=== PATIENT | female | born 1950 | race Caucasian/White ===

== ENCOUNTER 2019-03-06 14:38 | Outpatient (REF) | payer MEDICARE, SELFPAY ==
[2019-03-06 20:00] LABS: Absolute Basophil Count 0.02 k/cumm (0.0-0.2); Absolute Lymphocyte Count 1.86 k/cumm (1.2-3.4); Absolute Monocyte Count 0.35 k/cumm (0.11-0.7); Absolute Neutrophil Count 2.21 k/cumm (1.2-6.7); Basophils % 0.4; Eosinophils % 2.2; HCT 38.3 % (36.0-46.0); HGB 12.9 g/dL (12.0-15.5); Mean Corp. HGB Concentration 33.7 g/dL (32.0-36.0); Mean Platelet Volume 10.4 fL (8.0-11.0); Monocytes % 7.7; Neutrophils % 48.7; Platelet Count 309 x1000/uL (130-400); RBC 3.91 m/cumm (4.00-5.20); RBC Distribution Width 12.1 % (11.7-14.6); White Blood Cell Count 4.54 k/cumm (4.4-10.8)
[2019-03-06 20:32] LABS: ALT 21 U/L (12-78); AST 21 U/L (15-37); Albumin 3.7 g/dL (3.4-5.0); Alkaline Phosphatase 85 U/L (46-116); Anion Gap 9.3 mmol/L (3-11); BUN 11 mg/dL (7-18); Bilirubin, Total 0.3 mg/dL (0.2-1.0); CO2 26.7 mmol/L (21.0-32.0); CREATININE 0.93 mg/dL (0.55-1.02); Calcium 9.2 mg/dL (8.5-10.1); Chloride 105 mmol/L (98-107); Glucose 92 mg/dL (70-100); Potassium 4.2 mmol/L (3.5-5.1); Sodium 141 mmol/L (136-145); TSH (W/Ref FT4) 1.92 uIU/mL (0.358-3.74); Total Protein 6.8 g/dL (6.4-8.2)
== END 2019-03-06 14:58 ==
LOC: NCHCN 14:38
PROVIDERS: PCP Family Medicine; Visit Provider Physician Assistant Medical
DX: R03.0 Elevated blood-pressure reading, without diagnosis of hypertension (principal)
CPT/HCPCS: 80053; 84443; 85025

== ENCOUNTER 2019-04-14 14:12 | Outpatient (CLI) | payer MEDICARE, SELFPAY ==
--- NOTE | 2019-04-14 11:31 | DI.RAD_ITS ---
SYMPTOM/DIAGNOSIS: LOW BACK PAIN, M54.5 LUMBAR SPINE: There are endplate declivities seen in the L 3 and L 4 vertebral bodies resulting in mild compression. The findings appear old. The disc spaces are well maintained in height. There are facet degenerative changes which are prominent from L 3-4 through L 5-S 1. There is no spondylolysis or spondylolisthesis. There are mild degenerative changes of the hip joints and SI joints. IMPRESSION: Facet degenerative changes of the lower lumbar spine. Mild compression of the L 3 and L 4 vertebral bodies.
== END 2019-04-14 14:32 ==
PROVIDERS: PCP Family Medicine; Visit Provider Physician Assistant Medical
DX: M54.5 Low back pain (principal); M47.817 Spondylosis without myelopathy or radiculopathy, lumbosacral region; M48.56XD Collapsed vertebra, not elsewhere classified, lumbar region, subsequent encounter for fracture with routine healing
CPT/HCPCS: 72110

== ENCOUNTER 2019-07-27 01:11 | Outpatient (CLI) | payer MEDICARE, SELFPAY ==
--- NOTE | 2019-07-27 07:00 | DI.US_ITS ---
EXAM: US ABDOMEN CLINICAL HISTORY: MAGNOLIA-COLORED STOOLS, R19.5. TECHNIQUE: Ultrasound performed using standard protocol. COMPARISON: RENAL ULTRASOUND (P) from 01/13/2009 FINDINGS: The aorta and vena cava are unremarkable. The liver is normal. Portal vein is intact. There is no ev idence of a Wynne's sign. The patient is status post cholecystectomy. Common duct caliber is 5.8 mm , which is within normal limits. The pancreas is normal. The spleen is normal. The right kidney measu res 9.6 x 3.5 x 5.5 cm, the left kidney 10.5 x 5.8 x 5.2 cm. Regarding the possibility of a complex cyst of the left kidney measuring 2.3 x 1.5 x 1.7 cm, the cyst appears to contain some echogenic omid ons. Further assessment with CT is suggested.
== END 2019-07-27 01:31 ==
PROVIDERS: PCP Family Medicine; Visit Provider Family Medicine
DX: R19.5 Other fecal abnormalities (principal); Z90.49 Acquired absence of other specified parts of digestive tract; N28.1 Cyst of kidney, acquired
CPT/HCPCS: 76700

== ENCOUNTER → 2019-11-23 09:57 | Outpatient (BNVA) | payer MEDICARE, SELFPAY | PROVIDERS: PCP Family Medicine; Referring Provider Family Medicine; Visit Provider Surgery | DX: K59.00 Constipation, unspecified (principal); K63.5 Polyp of colon | CPT/HCPCS: 99203; 99214 ==

== ENCOUNTER 2019-11-27 09:46 | Day surgery (SDC) | payer MEDICARE, SELFPAY ==
[2019-11-27 09:59] VITALS: BP 120/71; PULSE 82; RESP 16; TEMP 36.2; O2SAT 95
[2019-11-27] MEDS: Lactated Ringers 1,000 ML 80 ML IV (10:31)
--- NOTE | 2019-11-27 11:55 | PDOC.DSDIS_ITS ---
Discharge Plan Disposition Patient Disposition: HOME Condition: Good Discharge Details Reason For Visit: Colonoscopy Attending Provider: Leticia Martníez Primary Care Provider: Tyra Garcia V Home Meds and New Rx's Prescriptions: Continued magnesium citrate Solution 150 ml PO ONCE RF: 0 Premarin 0.625 mg/gram cream 0.625 mg VG DAILY RF: 0 ergocalciferol (vitamin D2) 400 UNIT tablet 400 units PO DAILY RF: 0 fluoxetine [Prozac] 20 MG capsule 30 mg PO DAILY RF: 0 alprazolam 0.5 MG tablet,disintegrating 0.5 mg PO HS RF: 0 levalbuterol tartrate [Xopenex HFA] 15 GM HFA aerosol inhaler 15 gm Inhalation PRN PRNRF: 0 alum-mag hydroxide-simeth [Mag-Al Plus] 30 ML suspension 30 ml PO AC Qty: 1 RF: 2 lansoprazole [Prevacid] 15 MG capsule,delayed release(DR/EC) 30 mg PO DAILY Qty: 30 RF: 3 simethicone [Gas-X Extra Strength] 125 mg Tablet,Chewable 125 mg PO PRN PRNRF: 0 fluticasone propionate [Flonase Allergy Relief] 50 mcg/actuation [place],Suspension 1 spray INTRANASAL DAILY RF: 0 calcium carbonate [Tums] 200 mg calcium (500 mg) Tablet,Chewable 200 mg PO PRN PRNRF: 0 valacyclovir 1,000 MG tablet 1,000 mg PO DAILY RF: 0 ibuprofen 600 MG tablet 600 mg PO QID PRN PRNQty: 30 RF: 0 Discharge Instructions Additional Instructions: Findings: One polyp was removed. My office will contact you with biopsy results. Diverticulosis was present. Follow up: Plan for colonoscopy in 5 years. Please call if you develop: fevers >101.5 Nausea or Vomiting Abdominal pain that is not transient DAY SURGERY UNIT POST COLONOSCOPY INSTRUCTIONS 1. Because there will be medication in your system for the next 24 hours, you ma y feel a little sleepy. Your coordination will be affected. Therefore: a. Do not drive or operate dangerous equipment for 24 hours. b. Do not drink alcohol beverages for 24 hours (not even beer). c. Plan to go home and rest for the day. 2. Generally there are no restrictions on your activity after a day or so has gone by, but you may feel a bit fatigued for a few days. 3 After you arrive home you may have a light meal and return to a normal diet as you can tolerate it without feeling sick to your stomach. 4. After surgery, you may feel pain or discomfort. This should be only transient, but if it persists please contact your doctor. 5. If there are any questions regarding the findings of your procedure, please feel free to contact your doctor. 6. If you are unable to contact your doctor with a problem, contact the hospital at [phone]. 7. Continue all your regular medications unless directed otherwise. I understand the above instructions and have no questions. Signature of Patient or Responsible Adult Escort Date/Time Name of Responsible Adult Escort Signature of Nurse Date/Time Activity:: Activity as Tolerated Diet:: As Tolerated Discharge Orders Discharge Orders: Discharge Order (Routine); Ordered 11/27/19 Ordered By: Leticia Martínez DS: Diagnosis Discharge Diagnosis (1) Diverticulosis: Status: Acute (2) Colon polyps: Status: Acute
--- NOTE | 2019-11-27 12:30 | BOWEL_PTH ---
PATIENT: Cherelle Louise LOC: [facility] U#:[id number] AGE/SX: 69/F ROOM: RE11/27/[address]: Leticia Martínez MD : [id number] BED: DIS: 11/27/2019 SPEC #: [id number] RECD: 11/27/19 16:20 STATUS: VILMA REQ #: [id number] ELI: 11/27/19 12:[address]: Leticia Martínez DEPT: Surgical Specimen RECD BY: Shruthi Guillen ENTERED: 11/27/19 16:21 SP TYPE: Bowel OTHR DR: Tyra Garcia V Tissues: 1 - BIOPSY BOWEL Procedures: GROSS AND MICRO LEVEL 4 Comments: [id number]
[2019-11-27 13:27] VITALS: BP 123/61; PULSE 66; RESP 18; TEMP 36.2; O2SAT 96
--- NOTE | 2019-11-27 15:28 | COLE_ITS ---
DATE OF PROCEDURE: November 22, 2019 PREOPERATIVE DIAGNOSIS: History of colon polyps. POSTOPERATIVE DIAGNOSIS: 1. Ascending colon polyp. 2. Diverticulosis. PROCEDURE: Colonoscopy with cold forceps polypectomy. SURGEON: Leticia Martínez M.D. ANESTHESIA: General. INDICATIONS: This is a 69-year-old woman whose colonoscopy in 2014 showed a tubular adenoma. She presents for a follow-up. She also notes increasing constipation. PROCEDURE: She was placed in the left Chow position. Propofol was titrated to sedation. Digital rectal examination revealed no abnormalities. The scope was advanced to the cecum with a small amount of abdominal pressure required. The patient was noted to have a somewhat tortuous sigmoid colon related to diverticular change. There was no evidence of acute inflammation or stricture. The ileocecal valve and appendiceal orifice were clearly identified. Her prep was good. The scope was slowly withdrawn with a 6 mm polyp identified in the distal ascending colon. This was removed completely with a cold forceps and sent to pathology. No other abnormalities were noted throughout the transverse, descending, sigmoid colon or rectum, including on retroflex view, with the exception of the previously-mentioned diverticular disease. She did also have some scattered diverticulosis pockets on the right side of the colon. She tolerated the procedure well and was stable to recovery. It is anticipated she will need a follow-up colonoscopy again in five years pending biopsy results. She can consider increasing her MiraLax dosing to twice daily and if she does not gain benefit from this, then Linzess could be considered as well.
== END 2019-11-27 13:55 | disposition home or self-care (01) ==
PROVIDERS: PCP Family Medicine; Visit Provider Surgery
PROC: 0DJD8ZZ Inspection of Lower Intestinal Tract, Via Natural or Artificial Opening Endoscopic (ICD-10-PCS; CPT 45378; principal; 2019-11-27 11:15)
DX: Z12.11 Encounter for screening for malignant neoplasm of colon (principal); K63.5 Polyp of colon; K57.30 Diverticulosis of large intestine without perforation or abscess without bleeding; Z86.010 Personal history of colon polyps; K21.9 Gastro-esophageal reflux disease without esophagitis
CPT/HCPCS: 45380; 88305; J2704

== ENCOUNTER 2020-02-23 12:36 | Outpatient (REF) | payer MEDICARE, SELFPAY ==
[2020-02-23 19:21] LABS: HCT 36.9 % (36.0-46.0); HGB 12.4 g/dL (12.0-15.5); Mean Corp. HGB Concentration 33.6 g/dL (32.0-36.0); Mean Corpuscular Hemoglobin 32.7 pg (27.0-33.0); Mean Corpuscular Volume 97.4 fL (80-95); Mean Platelet Volume 10.6 fL (8.0-11.0); Platelet Count 325 x1000/uL (130-400); RBC 3.79 m/cumm (4.00-5.20); RBC Distribution Width 12.5 % (11.7-14.6); White Blood Cell Count 5.14 k/cumm (4.4-10.8)
[2020-02-23 19:29] LABS: Anion Gap 8.7 mmol/L (3-11); BUN 10 mg/dL (7-18); CO2 28.3 mmol/L (21.0-32.0); CREATININE 1.12 mg/dL (0.55-1.02); Calcium 9.4 mg/dL (8.5-10.1); Chloride 104 mmol/L (98-107); Estimated GFR 48.38 (mL/min/1.73m2); Glucose 85 mg/dL (74-106); Magnesium 2.3 mg/dL (1.8-2.4); Potassium 4.3 mmol/L (3.5-5.1); Sodium 141 mmol/L (136-145)
[2020-02-23 20:02] LABS: Bilirubin Negative (Negative); Blood Trace-intact (Negative); Clarity Clear (Clear); Glucose 250 mg/dL (Negative); Ketones Negative (Negative); Leukocyte Esterase Small (Negative); Nitrite Negative (Negative); Specific Gravity 1.025 (1.005-1.025); Urobilinogen 0.2 EU/dL (Up TO 0.2)
[2020-02-23 20:11] LABS: C & S Indicated? C&S Done As Ordered
[2020-02-23 20:14] LABS: Bacteria Few HPF (Negative); Casts Negative LPF (Negative); Crystals Negative HPF (Negative); Epithelial Cells Negative HPF (Negative); Mucus Negative (Negative); Other Cells Negative (Negative); RBC Negative HPF (0-2); WBC >50 HPF (0-5)
== END 2020-02-23 12:56 ==
LOC: NCHCN 12:36
PROVIDERS: PCP Family Medicine; Visit Provider Family Medicine
DX: R10.9 Unspecified abdominal pain (principal); R35.0 Frequency of micturition; M35.00 Sjogren syndrome, unspecified
CPT/HCPCS: 80048; 85027; 81003; 81015; 83735; 87086

== ENCOUNTER 2020-02-26 13:30 | Outpatient (CLI) | payer MEDICARE, SELFPAY ==
--- NOTE | 2020-02-26 | DI.CT_ITS ---
EXAM: CT THORACIC SPINE WO TECHNIQUE: Imaging Protocol: Axial computed tomography images with coronal and sagittal reformatted images were created and reviewed CONTRAST MATERIAL: Noncontrast COMPARISON: CR CHEST 2 VIEWS PA,LAT from 11/27/2015 CR RIGHT SHOULDER COMPLETE from 11/17/2016 CR RIGHT SHOULDER COMPLETE from 11/17/2016 CR XR lumbar spine complete from 04/14/2019 FINDINGS: The field of view includes T1 through mid L4. There is slight compression of the superior endplate of L1 which could be acute or subacute. It appe ars new when compared with plain films from 14 April 2019. There is a moderate compression fracture of the superior endplate of L3 which shows sclerosis and ifeanyi ears old. The degree of compression appears have increased when compared with previous exam. The re maining vertebral bodies are well maintained in height. There are endplate osteophytes. There is no lytic or blastic lesion. There is no evidence of a disc herniation or central canal stenosis. No n eural foraminal stenosis is identified. The paraspinal soft tissues appear intact. The aorta is no rmal in diameter. IMPRESSION: Mild compression of the superior endplate of L1 which could be acute or subacute. Moderate compressi on fracture of L3 which has worsened when compared with previous plain films. RADIATION DOSE DELIVERED: Total DLP Total DLP DATA REPOSITORY: All CT scans at this facility are submitted to the National Radiology Data Registry (NRDR) Dose Index Registry (DIR) with the [employer] (ACR). RADIATION OPTIMIZATION: All CT scans at this facility use at least one of these dose optimization te chniques: automated exposure control; mA and/or kV adjustment per patient size (includes targeted exa ms where dose is matched to clinical indication); or iterative reconstruction.
--- NOTE | 2020-02-26 12:41 | DI.CT_ITS ---
EXAM: CT RENAL COLIC WO CLINICAL HISTORY: FLANK PAIN, EVALUATE KIDNEYS. TECHNIQUE: Imaging Protocol: Axial computed tomography images with coronal and sagittal reformatted images were created and reviewed. CONTRAST MATERIAL: Noncontrast COMPARISON: CR XR lumbar spine complete from 04/14/2019 FINDINGS: ABDOMEN: Lung Bases: Normal where visualized. Liver: Normal density. No measurable mass. Gallbladder and biliary tract: Status post cholecystectomy. No biliary dilatation. Pancreas: Normal density, no abnormal calcifications or inflammatory process. Spleen: Normal. Kidneys: Normal size, contour and axis. No radiodense stones or obstructive uropathy. No masses seen. There is a small left renal cyst. Adrenal glands: No masses seen. Abdominal Aorta: Abdominal portion non-dilated. PELVIS: Bladder: Symmetric distention, no gross wall thickening. No bladder calculi are seen. Bowel: Sigmoid diverticulosis is seen. There is no evidence of diverticulitis. No obstruction or mookie wel wall thickening. Peritoneal cavity: No ascites, collection or mesenteric inflammatory response. The uterus and right ovary are unremarkable. There is suture material in the left adnexal region whi ch may be secondary to previous oophorectomy. Bones: There is slight compression of the superior endplate of L1. There is a moderate compression f racture of L3, increasing when compared with the previous plain films. There is a mild compression f racture of L4, stable. Facet degenerative changes are seen. The bones appear osteoporotic. No lyti c or blastic lesion is seen. IMPRESSION: No evidence of urinary tract calculi or hydronephrosis. There is been interval worsening of the L3 c ompression fracture, now moderate.. RADIATION DOSE DELIVERED: Total DLP DATA REPOSITORY: All CT scans at this facility are submitted to the National Radiology Data Registry (NRDR) Dose Index Registry (DIR) with the [place] [employer] (ACR). RADIATION OPTIMIZATION: All CT scans at this facility use at least one of these dose optimization te chniques: automated exposure control; mA and/or kV adjustment per patient size (includes targeted exa ms where dose is matched to clinical indication); or iterative reconstruction.
== END 2020-02-26 13:50 ==
PROVIDERS: PCP Family Medicine; Visit Provider Family Medicine
DX: R10.31 Right lower quadrant pain (principal); Z90.49 Acquired absence of other specified parts of digestive tract; N28.1 Cyst of kidney, acquired; M80.88XA Other osteoporosis with current pathological fracture, vertebra(e), initial encounter for fracture
CPT/HCPCS: 72128; 74176

== ENCOUNTER 2020-06-14 01:02 | Outpatient (CLI) | payer MEDICARE, SELFPAY ==
--- NOTE | 2020-06-14 11:38 | DI.MAMMO_ITS ---
EXAM: MAMMO SCREENING CLINICAL HISTORY: SCREENING, Z12.39 TECHNIQUE: Mammograms were interpreted according to the usual protocol including computer analysis w [id number] CAD system, tomosynthesis and C-view imaging. COMPARISON: FINDINGS: The breasts of heterogeneously dense with fairly symmetrical distribution of fibroglandular tissue. No dominant mass or clumped microcalcification is identified in either breast. The current examinati on is compared with previous examinations including March 2018 and there is question of increased prom inence of focal asymmetric density projected laterally in the right breast on CC view. Additional ma mmographic views of the right breast are requested to evaluate this area to include CC spot compressi on view.. No other significant change seen. IMPRESSION: Additional mammographic views of the right breast requested as described above. Breast ultrasound ma y be indicated as well depending on the results of the additional mammographic views. BI-RADS Category 0 - Assessment Incomplete: Need additional imaging evaluation Breast Density - Category C - Heterogeneously dense
== END 2020-06-14 01:22 ==
PROVIDERS: PCP Family Medicine; Visit Provider Family Medicine
DX: Z12.31 Encounter for screening mammogram for malignant neoplasm of breast (principal); R92.2 Inconclusive mammogram
CPT/HCPCS: 77063; 77067

== ENCOUNTER 2020-06-14 01:26 | Outpatient (RCR) | payer MEDICARE, SELFPAY | END 2020-06-20 23:59 | disposition home or self-care (01) | LOC: INF 01:26 | PROVIDERS: PCP Family Medicine; Visit Provider Nurse Practitioner Family | DX: R69 Illness, unspecified (principal) ==

== ENCOUNTER 2020-06-16 02:28 | Outpatient (CLI) | payer MEDICARE, SELFPAY ==
--- NOTE | 2020-06-16 10:45 | DI.US_ITS ---
EXAM: MG MAMMO SCREEN CALL BACK UNI CLINICAL HISTORY: F/U MAMMO, ? INCREASED ASYMMETRIC DENSITY LATERALLY RT BREAST ON CC VIEW TECHNIQUE: Mammograms were interpreted according to the usual protocol including computer analysis w [employer] CAD system, tomosynthesis and C-view imaging. COMPARISON: FINDINGS: Additional mammographic views of the right breast and right breast ultrasound are interpreted in conj unction. These examinations were obtained to evaluate questionable area of asymmetric density seen i n the upper outer quadrant right breast on recent mammogram. Additional mammographic views fail to show a discrete mass. Breast ultrasound shows no evidence of a mass or cyst. IMPRESSION: No specific evidence of malignancy at this time. Follow-up unilateral right breast recommended 6 mon ths. BI-RADS Cat 3 - 6 month - Probably Benign Finding: Recommend follow-up mammography in 6 months Breast Density - Category C - Heterogeneously dense
== END 2020-06-16 02:48 ==
PROVIDERS: PCP Family Medicine; Visit Provider Family Medicine
DX: R92.8 Other abnormal and inconclusive findings on diagnostic imaging of breast; R92.2 Inconclusive mammogram
CPT/HCPCS: 76642; 77063; 77067

== ENCOUNTER 2020-06-17 09:58 | Outpatient (REF) | payer MEDICARE, SELFPAY ==
[2020-06-17 19:03] LABS: Bilirubin Negative (Negative); Blood Negative (Negative); Clarity Clear (Clear); Glucose Negative (Negative); Ketones Negative (Negative); Leukocyte Esterase Negative (Negative); Nitrite Negative (Negative); Urobilinogen 0.2 EU/dL (Up TO 0.2); pH 6.5 (5-8)
[2020-06-17 19:21] LABS: Anion Gap 3.8 mmol/L (3-11); BUN 14 mg/dL (7-18); CO2 30.2 mmol/L (21.0-32.0); CREATININE 1.02 mg/dL (0.55-1.02); Calcium 8.8 mg/dL (8.5-10.1); Calculated LDL 176 mg/dL (<100); Chloride 109 mmol/L (98-107); Cholesterol 247 mg/dL (<200); Estimated GFR 53.73 (mL/min/1.73m2); Glucose 104 mg/dL (74-106); HDL Cholesterol 37 mg/dL (40-60); Potassium 4.3 mmol/L (3.5-5.1); Sodium 143 mmol/L (136-145); Triglyceride 172 mg/dL (<150)
== END 2020-06-17 10:18 ==
LOC: NCHCN 09:58
PROVIDERS: PCP Family Medicine; Visit Provider Family Medicine
DX: I10 Essential (primary) hypertension (principal); E78.5 Hyperlipidemia, unspecified
CPT/HCPCS: 80048; 80061; 81003

== ENCOUNTER 2020-06-23 00:44 | Outpatient (CLI) | payer MEDICARE, SELFPAY ==
--- NOTE | 2020-06-23 09:15 | DI.NM_ITS ---
APPROVED REPORT Exam: Exercise Treadmill Patient Location: Out-Patient Room/Bed: Stress Nurse: Leticia Alvarenga RN BMI: 0 Baseline Rhythm: Sinus Rhythm Comment: Left [place] Deviation Indications: For the past several months patient reports left sided chest ???heaviness??? with walkin g and activity. Medical History Medical History: GERD, Depression, Anxiety. Cardiac Medications: Metoprolol Succinate, Aspirin. Allergies: Crestor, Atorvastatin, Nizoral, Sulfa, Lovastatin, Plaquenil, Mold, Dust, Red Yeast Rice. Cardiac Risk Factors: FHX of CAD, HTN, Hyperlipidemia, Asthma Previous Cardiac Procedures: None Pretest Chest Pain Characteristics: None Exercise History: Physically active Physical Disabilities: None Lung Sounds: Clear to auscultation Heart Sounds: Regular Stress Test Details Test: Exercise stress testing was performed using a Sal protocol. Nuclear Acquisition: Rest Tc-99m/Stress Tc-99m 1 day Rest Isotope: Tc-99m Sestamibi. Dose: 9.8 Date: 06/23/2020 Injection Time: 0930 Stress Isotope: Tc-99m Sestamibi. Dose: 31.0 Date: 06/23/2020 Injection Time: 1125 HR Resting HR Supine: 64 bpm Max Heart Rate (APMHR): 151 bpm Resting HR Standin bpm Target HR (85% APMHR): 128 bpm Max HR Achieved: 140 bpm % of APMHR: 92 HR response to stress: Normal HR response to stress BP Resting BP Supine: 150/90 mmHg Resting BP Standin/90 mmHg Max BP: 182/72 mmHg BP response to stress: Normal blood pressure response to stress. ECG Resting ECG: Sinus Rhythm Stress ECG: No significant St segment changes noted. Clinical Reason for Termination: Fatigue Stress Symptoms: None reported per patient. Exercise duration: 8 min15 sec Highest Stage Reached: Stage 3: 3.4 mph at 14% grade. Exercise capacity: 10.16 METs Functional Capacity: Above average capacity Stress ECG Conclusion 1. Resting electrocardiogram was normal 2. The patient exercised on the Sal protocol and completed a workload of 10.16 METs, 8 minutes and 15 seconds. 3. Normal heart rate and blood pressure response to exercise. The patient achieved 92% of predicted heart rate for age 4. There were no symptoms to suggest angina 5. Electrocardiographically the test was negative for myocardial ischemia 6. There were no dysrhythmias 7. Heller treadmill score is 8, low risk Stress Test Summary STAGE Time (mins) Speed (mph) Grade (%) HR BP SYMPTOMS METS Supine 64 150/90 Standing 65 146/90 1 3 1.7 10 90 158/76 4.6 2 6 2.5 12 109 172/68 7 1 min recovery 128 180/66 3 min recovery 88 182/72 6 min recovery 80 156/82 MPI Conclusion Normal myocardial perfusion without evidence of ischemia or prior infarction EF 71% Radiologist Interpretation Radiologist agrees with Hospice Executive Director's Interpretation. Radiologist Interpretation by: Kenroy Machdao MD Interpretation Date/Time: 07/04/2020 14:47:03
== END 2020-06-23 01:04 ==
PROVIDERS: PCP Family Medicine; Visit Provider Family Medicine
DX: R07.9 Chest pain, unspecified (principal); Z82.49 Family history of ischemic heart disease and other diseases of the circulatory system; I10 Essential (primary) hypertension; E78.5 Hyperlipidemia, unspecified; J45.909 Unspecified asthma, uncomplicated
CPT/HCPCS: 78452; 93016; 93018; 93017

== ENCOUNTER 2020-12-20 01:33 | Outpatient (CLI) | payer MEDICARE, SELFPAY ==
--- NOTE | 2020-12-20 | DI.MAMMO_ITS ---
EXAM: MG MAMMO DIAGNOSTIC UNI CLINICAL HISTORY: DIAGNOSTIC, F/U ABNL MAMMO, 6 MONTH FOLLOW UP TECHNIQUE: Mammograms were interpreted according to the usual protocol including computer analysis w ith CAD system, tomosynthesis and C-view imaging. COMPARISON: FINDINGS: Today's mammogram of the right breast was obtained to follow questionable area of asymmetric density of the upper outer quadrant of the right breast seen on prior mammogram of May 2020. On today's examination, there has been no significant change in appearance of the breast, no new mass or clumped microcalcification seen. Questionable asymmetric density is less prominent than on the p rior study. IMPRESSION: No specific evidence of malignancy at this time. I would suggest that routine screening examinations resume with a bilateral mammogram in 6 months. BI-RADS Category 3 - 6 month - Probably Benign Finding: Recommend follow-up mammography in 6 months Breast Density - Category C - Heterogeneously dense
== END 2020-12-20 01:53 ==
PROVIDERS: PCP Family Medicine; Visit Provider Family Medicine
DX: R92.8 Other abnormal and inconclusive findings on diagnostic imaging of breast (principal)
CPT/HCPCS: 77061; 77065; G0279

== ENCOUNTER 2021-01-25 01:37 | Outpatient (CLI) | payer MEDICARE, SELFPAY ==
--- NOTE | 2021-01-25 10:20 | DI.US_ITS ---
APPROVED REPORT EXAM: Comprehensive 2D, Doppler, and color-flow Echocardiogram Patient Location: Out-Patient Floor Specialist: Kaleigh Swartz RDCS (AE) Indications: Chest pain, Dyspnea on exertion, Murmur Other Information Study Quality: Good Conclusion Left Ventricle : The left ventricle is normal size. The left ventricular systolic function is normal. The left ventricular ejection fraction is within the normal range. There is normal left ventricular wall thickness. There is normal LV segmental wall motion. The left ventricular diastolic function is normal. LVEF is 65%. Right Ventricle : The right ventricle is normal size. The right ventricular systolic function is norm al. The RVSP is 30.4 mmHg. Atria : The left atrium size is normal. The right atrium size is normal. Valves: There are no hemodynamically significant valvular lesions. Great Vessels : The aortic root is normal in size. The ascending aorta is normal in size. Aortic arch is normal in caliber. IVC is normal in size and collapses >50% with inspiration. Please see remainder of study for further details. Wall motion Left Ventricle The left ventricle is normal size. The left ventricular systolic function is normal. The left ventric ular ejection fraction is within the normal range. There is normal left ventricular wall thickness. T here is normal LV segmental wall motion. The left ventricular diastolic function is normal. There is no ventricular septal defect visualized. LVEF is 65%. Right Ventricle The right ventricle is normal size. The right ventricular systolic function is normal. The RVSP is 30 .4 mmHg. Atria The left atrium size is normal. The right atrium size is normal. The interatrial septum is intact wit h no evidence for an atrial septal defect. Aortic Valve The aortic valve is normal in structure. Aortic valve is trileaflet. There is no aortic valvular sten osis. No aortic regurgitation is present. Mitral Valve The mitral valve is normal in structure. No evidence of mitral valve stenosis. Trace mitral regurgita tion. Tricuspid Valve The tricuspid valve is normal in structure. There is no tricuspid valve stenosis. Trace tricuspid reg urgitation. Pulmonic Valve The pulmonary valve is normal in structure. There is no pulmonic valvular stenosis. Trace pulmonic re gurgitation. Great Vessels The aortic root is normal in size. The ascending aorta is normal in size. Aortic arch is normal in ca liber. IVC is normal in size and collapses >50% with inspiration. Pericardium There is no pericardial effusion. 2D Dimensions IVSD d PLAX 0.86 cm F: 0.6-1.0 LV Vol A2C d MOD 70.8 mL LVPW d PLAX 0.87 cm F: 0.6 - 1.0 LV Vol A4C d MOD 86.6 mL LVID d PLAX 4.53 cm F: 3.8 - 5.2 LA vol/ BSA A4C s A-L 22.1 mL/m2 LVDs 2.90 cm F: 2.2 - 3.5 LA Area A4C s MOD 16.55 cm2 Ao Root d 2.40 cm F: 2.7 - 3.3 LV EF A4C MOD 64.5 % RA Area A4C 10.65 cm2 LV EF A2C MOD 61.6 % RA Vol/ BSA A4C s A-L 11.3 mL/m2 LV EF Biplane MOD 62.0 % Ao Asc Diam d 2.73 cm F: 2.3 - 3.1 SV 48.51 mL LV EF Teichholz 65.2 % SV Index 25.47 mL/m2 LVEF (Almendarez's) 62.04 % F: 54 - 74 LV Volume 59.63 mL F: 46 - 106 LV Volume Index 31.38 mL/m2 F: 29 - 61 LV Vol Biplane MOD 78.2 mL FS 35.60 % M-Mode TAPSE 2.60 cm (M/F) >1.7 LV Diastology MV E' medial 0.127 (>0.07 m/s) E/A Ratio 1.1 LV E/e MED 6.70 (<14) MV E Vmax 0.85 (0.4-1.3 m/s) MV E' lateral 0.117 (>0.1 m/s) MV A Vmax 0.75 (0.4-1.3 m/s) LV E/e LAT 7.25 (<14) MV E/A Ratio 1.10 MV E/E' medial 6.70 MV E/E' lateral 7.26 Aortic Valve LVOT Area 3.06 cm2 AoV Area Vmax 2.44 cm2 LVOT Vmax 1.29 m/s AoV Area/ BSA (Vmax) 1.28 cm2/m2 LVOT Mean Ashwin. 0.79 m/s KRISTI Mean Ashwin. 2.34 cm2 LVOT Peak Grad 6.7 mmHg KRISTI Mean Ashwin. Index 1.23 cm2/m2 LVOT Mean Grad 3.0 mmHg LVOT VTI 0.236 m LVOT Diam s 1.95 cm AoV Vmax 1.62 m/s Velocity Ratio 0.79 AoV Mean Ashwin. 1.03 m/s AoV Peak Grad 10.5 mmHg LVOT SV 72.28 mL AoV Mean Grad 4.9 mmHg AoV VTI 0.317 m AoV Area VTI 2.28 cm2 AoV Area/ BSA (VTI) 1.20 cm/m2 Mitral Valve MV DT 226 (160-240 msec) MR Vmax 4.47 m/s MV PHT 65 msec MR VTI 1.350 m MV Area PHT 3.36 cm2 MR Peak Grad 79.8 mmHg MV VTI 0.369 m MR Mean Grad 58.7 mmHg MV VTI Annulus 0.364 m MV Area VTI 1.94 (4.0-6.0 cm2) Pulmonary Valve PV Vmax 1.04 (0.5-1.5 m/s) RVOT Peak Gr. 2.08 mmHg PV Peak Grad 4.3 mmHg RVOT Mean Gr. 1.15 mmHg PV Mean Grad 2.2 mmHg RVOT VTI 0.185 m PV VTI 0.248 m RVOT Vmax 0.72 m/s Tricuspid Valve TR Peak Grad 27.3 mmHg TR Vmax 2.62 m/s RA Pressure 3.00 mmHg RVSP (TR) 30.4 mmHg
== END 2021-01-25 01:57 ==
PROVIDERS: PCP Family Medicine; Visit Provider Family Medicine
DX: R07.9 Chest pain, unspecified (principal); R06.09 Other forms of dyspnea; R01.1 Cardiac murmur, unspecified
CPT/HCPCS: 93306

== ENCOUNTER 2021-06-19 01:27 | Outpatient (CLI) | payer MEDICARE, SELFPAY ==
--- NOTE | 2021-06-19 | DI.MAMMO_ITS ---
Exam(s) MAMMO SCREENING EXAM: MAMMO SCREENING CLINICAL HISTORY: SCREENING, [facility],Z00.00 TECHNIQUE: Bilateral full field digital CC and MLO mammographic images were obtained with 3D tomosyn thesis and utilizing computer aided detection (CAD). COMPARISON: Available for comparison. FINDINGS: Masses/Architectural Distortion: None seen. Microcalcifications: No suspicious pleomorphic-type are seen. Skin Thickening/Nipple Retraction: None. IMPRESSION: 1. No significant interval change with no specific features of malignancy noted. 2. Unless there is more urgent need, screening mammography is recommended, as per [place] guidelines. BI-RADS Category 1 - Negative Breast Density - Category C - Heterogeneously dense Breast density category C or D implies that the patient has dense breast tissue. Dense breast tissue is very common and is not abnormal but dense breast tissue can make it harder to find cancer on a ma mmogram. Also, dense breast tissue may increase their breast cancer risk. This information about the result of the mammogram report was provided to the patient to raise their awareness. Use this report when you speak with the patient about their risks for breast cancer, which includes their family hist ory. At that time, you may recommend for more screening tests (Ultrasound or MRI) as they might be us eful based on their risk. A negative radiographic report should not delay biopsy if a dominant or clinically suspicious mass is present. Up to ten percent of cancers are not identified on mammography. A negative report may reinforce clinical impression. Adenosis and dense breasts may obscure an underlying neoplasm. False positive reports average 6 to 10%. Patient will receive a letter notifying them of these results.
== END 2021-06-19 01:47 ==
PROVIDERS: PCP Family Medicine; Visit Provider Family Medicine
DX: Z12.31 Encounter for screening mammogram for malignant neoplasm of breast
CPT/HCPCS: 77063; 77067

== ENCOUNTER 2021-07-12 10:44 | Outpatient (REF) | payer MEDICARE, SELFPAY ==
[2021-07-12 14:10] LABS: HCT 36.9 % (36.0-46.0); HGB 12.4 g/dL (11.2-15.7); MCH 32.2 pg (27.0-33.0); MCHC 33.6 % (32.0-36.0); MCV 95.8 fL (80-95); MPV 10.5 fL (8.0-11.0); Platelet Count 301 10^3/uL (130-400); RBC 3.85 10^6/uL (3.93-5.22); RDW 12.1 % (11.7-14.6); RDW-SD 42.4 fL; WBC 4.91 10^3/uL (4.4-10.8)
[2021-07-12 14:32] LABS: ALT 24 U/L (14-59); AST 19 U/L (15-37); Albumin 3.8 g/dL (3.4-5.0); Alkaline Phosphatase 90 U/L (46-116); Anion Gap 9.4 mmol/L (3-11); BUN 14 mg/dL (7-18); Bilirubin, Total 0.4 mg/dL (0.2-1.0); CO2 27.6 mmol/L (21.0-32.0); CREATININE 1.1 mg/dL (0.55-1.02); Calcium 8.7 mg/dL (8.5-10.1); Calculated LDL 196 mg/dL (<100); Chloride 106 mmol/L (98-107); Cholesterol 265 mg/dL (<200); Glucose 97 mg/dL (74-106); HDL Cholesterol 38 mg/dL (40-60); Potassium 4.3 mmol/L (3.5-5.1); Sodium 143 mmol/L (136-145); TSH (W/Ref FT4) 2.89 uIU/mL (0.36-3.74); Total Protein 6.9 g/dL (6.4-8.2); Triglyceride 155 mg/dL (<150)
== END 2021-07-12 10:45 | disposition home or self-care (01) ==
LOC: NCHCN 10:44
PROVIDERS: PCP Family Medicine; Visit Provider Family Medicine
DX: I10 Essential (primary) hypertension (principal); E78.5 Hyperlipidemia, unspecified; R53.83 Other fatigue
CPT/HCPCS: 80053; 80061; 85027; 84443

== ENCOUNTER 2021-07-21 09:08 | Outpatient (REF) | payer OTHER, SELFPAY ==
[2021-07-23 14:12] LABS: COVID-19 RT-PCR UVMMC Result Negative (Negative)
== END 2021-07-21 09:09 | disposition home or self-care (01) ==
LOC: NCHCN 09:08
PROVIDERS: PCP Family Medicine; Visit Provider Family Medicine
DX: R53.83 Other fatigue (principal); R05.8 Other specified cough; Z20.822 Contact with and (suspected) exposure to COVID-19
CPT/HCPCS: U0003

== ENCOUNTER 2023-01-25 16:09 | Outpatient (REF) | payer OTHER, SELFPAY ==
[2023-01-25 14:36] LABS: HCT 38.5 % (36.0-46.0)
[2023-01-25 15:15] LABS: Hemoglobin A1C 5.4 % (<5.7)
[2023-01-25 15:20] LABS: ALT 22 U/L (14-59); AST 20 U/L (15-37); Albumin 3.7 g/dL (3.4-5.0); Alkaline Phosphatase 85 U/L (46-116); Anion Gap 8.2 mmol/L (3-11); BUN 19 mg/dL (7-18); Bilirubin, Total 0.3 mg/dL (0.2-1.0); CO2 27.8 mmol/L (21.0-32.0); CREATININE 1.2 mg/dL (0.55-1.02); Calcium 9.4 mg/dL (8.5-10.1); Calculated LDL 223 mg/dL (<100); Chloride 105 mmol/L (98-107); Cholesterol 297 mg/dL (<200); Estimated GFR 48.39 (mL/min/1.73m2); Glucose 89 mg/dL (74-106); HDL Cholesterol 43 mg/dL (40-60); Potassium 4.2 mmol/L (3.5-5.1); Sodium 141 mmol/L (136-145); TSH (W/Ref FT4) 3.64 uIU/mL (0.36-3.74); Total Protein 7.3 g/dL (6.4-8.2); Triglyceride 159 mg/dL (<150)
== END 2023-01-25 16:10 | disposition home or self-care (01) ==
LOC: NCHCN 16:09
PROVIDERS: PCP Family Medicine; Visit Provider Family Medicine
DX: I10 Essential (primary) hypertension (principal); E78.5 Hyperlipidemia, unspecified; R79.89 Other specified abnormal findings of blood chemistry; H53.2 Diplopia
CPT/HCPCS: 80053; 80061; 83036; 84443; 85014; 85018

== ENCOUNTER 2023-02-13 01:09 | Outpatient (CLI) | payer OTHER, SELFPAY ==
--- NOTE | 2023-02-13 | DI.MAMMO_ITS ---
Exam(s) MAMMO SCREENING EXAM: MAMMO SCREENING CLINICAL HISTORY: SCREENING, Z12.31, [facility], Z00.00 TECHNIQUE: Bilateral full field digital CC and MLO mammographic images were obtained with 3D tomosyn thesis and utilizing computer aided detection (CAD). COMPARISON: Available for comparison. FINDINGS: Masses/Architectural Distortion: None seen. Microcalcifications: No suspicious pleomorphic-type are seen. Skin Thickening/Nipple Retraction: None. IMPRESSION: 1. No significant interval change with no specific features of malignancy noted. 2. Unless there is more urgent need, screening mammography is recommended, as per [employer] guidelines. BI-RADS Category 1 - Negative Breast Density - Category C - Heterogeneously dense Breast density category C or D implies that the patient has dense breast tissue. Dense breast tissue is very common and is not abnormal but dense breast tissue can make it harder to find cancer on a ma mmogram. Also, dense breast tissue may increase their breast cancer risk. This information about the result of the mammogram report was provided to the patient to raise their awareness. Use this report when you speak with the patient about their risks for breast cancer, which includes their family hist ory. At that time, you may recommend for more screening tests (Ultrasound or MRI) as they might be us eful based on their risk. A negative radiographic report should not delay biopsy if a dominant or clinically suspicious mass is present. Up to ten percent of cancers are not identified on mammography. A negative report may reinforce clinical impression. Adenosis and dense breasts may obscure an underlying neoplasm. False positive reports average 6 to 10%. Patient will receive a letter notifying them of these results.
== END 2023-02-13 01:29 ==
LOC: DI 01:09
PROVIDERS: PCP Family Medicine; Visit Provider Family Medicine
DX: Z12.31 Encounter for screening mammogram for malignant neoplasm of breast (principal); Z00.00 Encounter for general adult medical examination without abnormal findings
CPT/HCPCS: 77063; 77067

== ENCOUNTER 2023-02-20 00:32 | Outpatient (CLI) | payer OTHER, SELFPAY ==
--- NOTE | 2023-02-20 | DI.MRI_ITS ---
Exam(s) MR BRAIN WO/W EXAM: MR BRAIN WO/W CLINICAL HISTORY: DOUBLE VISION, H53.2. TECHNIQUE: Multiplanar multisequence MRI of the brain was performed. CONTRAST MATERIAL: IV Contrast: 17 ML of Dotarem contrast administered. COMPARISON: No exams were available for comparison FINDINGS: VENTRICLES AND EXTRA AXIAL SPACES: Normal in size and morphology for the patient's age. HEMORRHAGE: None. CEREBRAL PARENCHYMA: No focus of restricted diffusion to suggest acute infarct. No space-occupying le gadiel identified. MIDLINE SHIFT: None. BRAINSTEM/CEREBELLUM: Normal. CALVARIUM: Normal. ENHANCEMENT: No suspicious enhancement identified. VISUALIZED PARANASAL SINUSES/MASTOIDS: Clear. OTHER FINDINGS: None. IMPRESSION: Unremarkable MRI of the brain. DATA REPOSITORY:
[2023-02-20] MEDS: Normal Saline Flush 10 ML SYR IVP (10:12)
[2023-02-20] MEDS: Gadoterate meglumine 20 ML SYRINGE 17 ML IVP (10:13)
== END 2023-02-20 00:52 ==
LOC: DI 00:32
PROVIDERS: PCP Family Medicine; Visit Provider Family Medicine
DX: H53.2 Diplopia (principal)
CPT/HCPCS: 70553

== ENCOUNTER 2023-02-26 13:38 | Outpatient (CLI) | payer OTHER, SELFPAY ==
--- NOTE | 2023-02-26 | DI.US_ITS ---
Exam(s) US UPPER EXTREMITY VENOUS LT EXAM: US UPPER EXTREMITY VENOUS LT CLINICAL HISTORY: S/P IV FOR MRI 02/20, LT ARM CELLULITIS,SWELLING LT ARM, R22.32,THROMBOPHLEBI TECHNIQUE: GRAYSCALE, COLOR, DOPPLER IMAGING OF THE VENOUS SYSTEM OF THE UPPER EXTREMITY-BILATERAL COMPARISON: FINDINGS: This is an abnormal-positive study. There intraluminal thrombus involving the median cubital vein, e xtending into the base iliac vein and up to level just 3 cm proximal to the left axillary vein. The length of the thrombus within the basilar vein is estimated approximately 12 cm length extending from the proximal forearm to the mid upper arm. There is also intraluminal thrombus in the cephalic vein measuring 33 cm length extending from this l evel in the upper arm to the distal forearm level. The brachial vein appears patent as does the axillary vein and subclavian. IMPRESSION: Positive study for significant clot load in the veins of the left upper extremity, specifically the l eft base iliac and cephalic veins as described above. Intraluminal thrombus starts in the forearm an d is seen extending up these veins as described above. There is no intraluminal thrombus at the leve l of the axillary vein. The cephalad extent of the basilar vein thrombus is approximately 3 cm below the level of the left axillary vein. Wet read stat fax DATA REPOSITORY:
== END 2023-02-26 13:58 ==
LOC: DI 13:40
PROVIDERS: PCP Family Medicine; Visit Provider Physician Assistant Medical
DX: R22.32 Localized swelling, mass and lump, left upper limb (principal)
CPT/HCPCS: 93971

== ENCOUNTER → 2023-06-07 00:29 | Outpatient (CLI) | payer OTHER, SELFPAY ==
--- NOTE | 2023-06-07 | DI.US_ITS ---
Exam(s) US UPPER EXTREMITY VENOUS LT EXAM: US UPPER EXTREMITY VENOUS LT CLINICAL HISTORY: H/O DVT UPPER EXT,Z86.718, F/U, ? ANY CHANGE TECHNIQUE: GRAYSCALE, COLOR, DOPPLER IMAGING OF THE VENOUS SYSTEM OF THE UPPER EXTREMITY-BILATERAL COMPARISON: US US UPPER EXTREMITY VENOUS LT from 02/26/2023 FINDINGS: The present study the previously present intraluminal thrombosis described on the study of Feb 26 2023 is no longer seen. Basilic vein: Patent. Normal color-flow and normal compression and augmentation properties. Brachial vein(s):Patent. Normal color flow. Normal compression and augmentation properties. Cephalic vein:Patent. Normal color flow. Normal compression and augmentation properties. Axillary vein: Patent. Normal color flow. Normal compression and augmentation properties. Visualized subclavian vein: Patent. No obvious intraluminal thrombus. IMPRESSION: There is presently no evidence of venous thrombosis in the left upper extremity. Previously present thrombus appears to have resolved. DATA REPOSITORY:
--- NOTE | 2023-06-07 12:40 | DI.RAD_ITS ---
Exam(s) XR CERVICAL SPINE COMP 4-5V EXAM: XR CERVICAL SPINE COMP 4-5V CLINICAL HISTORY: LT NUMBNESS AND TINGLING LT ARM R20.2,? JOINT SPACE NARROWING. TECHNIQUE: 2D digital imaging was performed. COMPARISON: No exams were available for comparison FINDINGS: BONES: No fracture or destructive lesion. Vertebral bodies are unremarkable. Facet degenerative derek nges are noted throughout. the left neural foramen are suboptimally profiled. Wyxy-th-soknfbgi neur al foraminal narrowing is seen on the right at C4-5. DISKS: C2-3 disc space is maintained. There is mild loss of height at the C3-4 2 disc. There are en dplate osteophytes projecting mainly anteriorly. There is moderate loss of disc height from C4-5 thr ough C6-7. Mild the C7-T1 disc space is maintained. ALIGNMENT: Cervical spinal alignment is within normal limits. The odontoid and atlantoaxial articulat ions are normal. SOFT TISSUE: Normal. The lung apices are clear. IMPRESSION: Degenerative changes throughout, greatest at C4-5 through C6-7. DATA REPOSITORY: RADIATION DOSE DELIVERED:
== END ==
PROVIDERS: PCP Family Medicine; Visit Provider Physician Assistant Medical
DX: Z86.718 Personal history of other venous thrombosis and embolism (principal); M47.812 Spondylosis without myelopathy or radiculopathy, cervical region; M99.63 Osseous and subluxation stenosis of intervertebral foramina of lumbar region; R20.2 Paresthesia of skin
CPT/HCPCS: 72050; 93971

== ENCOUNTER 2023-07-25 09:25 | Outpatient (REF) | payer OTHER, SELFPAY ==
[2023-07-25 15:24] LABS: HCT 37.4 % (36.0-46.0); HGB 12.6 g/dL (11.2-15.7)
[2023-07-25 15:37] LABS: ALT 21 U/L (14-59); AST 23 U/L (15-37); Albumin 3.9 g/dL (3.4-5.0); Alkaline Phosphatase 85 U/L (46-116); Anion Gap 9.9 mmol/L (3-11); BUN 14 mg/dL (7-18); Bilirubin, Total 0.3 mg/dL (0.2-1.0); CO2 25.1 mmol/L (21.0-32.0); CREATININE 1.2 mg/dL (0.55-1.02); Calcium 9.4 mg/dL (8.5-10.1); Calculated LDL 189 mg/dL (<100); Chloride 103 mmol/L (98-107); Cholesterol 257 mg/dL (<200); Estimated GFR 48.09 (mL/min/1.73m2); Glucose 100 mg/dL (74-106); HDL Cholesterol 43 mg/dL (40-60); Potassium 4.4 mmol/L (3.5-5.1); Sodium 138 mmol/L (136-145); Total Protein 7.5 g/dL (6.4-8.2); Triglyceride 128 mg/dL (<150)
[2023-07-30 10:48] LABS: Factor V Leiden(R506Q) Mut Heterozygous (Negative)
== END 2023-07-25 09:26 | disposition home or self-care (01) ==
LOC: NCHCN 09:25
PROVIDERS: PCP Family Medicine; Visit Provider Family Medicine
DX: E78.5 Hyperlipidemia, unspecified (principal); Z00.00 Encounter for general adult medical examination without abnormal findings; I10 Essential (primary) hypertension; M25.50 Pain in unspecified joint
CPT/HCPCS: 80053; 80061; 81241; 85014; 85018

== ENCOUNTER → 2023-08-12 13:24 | Outpatient (BNVA) | payer OTHER, SELFPAY | PROVIDERS: PCP Family Medicine; Referring Provider Family Medicine; Visit Provider Surgery | DX: K21.9 Gastro-esophageal reflux disease without esophagitis (principal); R13.10 Dysphagia, unspecified | CPT/HCPCS: 99204 ==

== ENCOUNTER 2023-08-14 06:54 | Day surgery (SDC) | payer OTHER, SELFPAY ==
[2023-08-14 07:32] VITALS: BP 137/62; PULSE 54; RESP 16; TEMP 36.5; O2SAT 97
[2023-08-14] MEDS: Lactated Ringers 1,000 ML 80 ML IV (07:45)
--- NOTE | 2023-08-14 07:48 | ANES.PREOP_ITS ---
General Info Date of Service Date Performed: 08/14/23 Height: 5 ft 4.5 in Weight: 82.9 kg Body Mass Index (BMI): 30.9 Surgical Procedure: Operation Date: 08/14/23 08:35 Proposed Procedure Side Surgeon p Gastroscopy Lanny Dougherty MD Meds Allergies and Home Medications Allergies Allergy/AdvReac Type Severity Reaction Status Date / Time amitriptyline [From Elavil] Allergy Severe Verified 08/14/23 07:26 atorvastatin Allergy Severe unknown Verified 08/14/23 07:26 bupropion [From Wellbutrin] Allergy Severe Verified 08/14/23 07:26 ketoconazole [From Nizoral] Allergy Severe Unverified 08/14/23 07:26 rosuvastatin [From Crestor] Allergy Severe unknown Verified 08/14/23 07:26 Sulfa (Sulfonamide Allergy Intermediate Unverified 08/14/23 07:26 Antibiotics) hydroxychloroquine sulfate Allergy Mild Unverified 08/14/23 07:26 [From Plaquenil] lovastatin Allergy Mild Unverified 08/14/23 07:26 aspirin AdvReac Mild Other (See Unverified 08/14/23 07:26 Comment) red yeast rice AdvReac Mild Unverified 08/14/23 07:26 Home Medication Medication Instructions Recorded Prozac 20 mg capsule (fluoxetine) 30 mg PO DAILY 11/30/14 Xopenex HFA 45 mcg/actuation 15 gm inhalation PRN PRN 11/30/14 aerosol inhaler (levalbuterol tartrate) ibuprofen 600 mg tablet 600 mg PO QID PRN PRN #30 tabs 11/17/16 valacyclovir 1 gram tablet 1,000 mg PO DAILY 11/17/16 simethicone 125 mg chewable tablet 125 mg PO PRN PRN 11/25/19 (Gas-X Extra Strength) calcium carbonate 200 mg calcium 200 mg PO PRN PRN 11/27/19 (500 mg) chewable tablet (Tums) losartan 25 mg tablet 50 mg PO DAILY 08/05/23 metoprolol succinate 25 mg 25 mg PO DAILY 08/05/23 tablet,extended release 24 hr cholecalciferol (vitamin D3) 125 125 mcg PO DAILY 08/12/23 mcg (5,000 unit) capsule famotidine 40 mg tablet (Pepcid) 40 mg PO QHS #90 tabs 08/14/23 sucralfate 1 gram tablet (Carafate) 1 g PO TID 30 days #90 tabs 08/14/23 Current Visit Medications: Current Medications Generic Name Dose Route Start Last Admin Trade Name Freq PRN Reason Stop Dose Admin Ringer's Solution 1,000 mls @ 80 mls/hr 08/14/23 06:00 IV 09/12/23 23:59 INFUSION TRICIA IV Miscellaneous Supplies 1 each 08/14/23 06:00 Iv Access IV 09/12/23 23:59 DIRECTED TRICIA Sodium Chloride 0 ml 08/14/23 06:00 Normal Saline Flush 10 Ml Syr IV 09/12/23 23:59 PRN PRN Sodium Chloride 0 ml 08/14/23 06:00 Normal Saline 10 Ml Vial IJ 09/12/23 23:59 DIRECTED PRN Sterile Water 0 ml 08/14/23 06:00 Water,Injection,Sterile 10 Ml Vial IJ 09/12/23 23:59 DIRECTED PRN PFSH Active Problems Active Problems: Problem Status Onset Code Dysphagia R13.10 Shoulder pain, left M25.512 Diverticulosis K57.90 Colon polyps K63.5 Abdominal tenderness R10.819 Constipation K59.00 GERD (gastroesophageal reflux disease) Medical History Medical History (Updated 08/14/23 @ 09:03 by Lanny Dougherty MD) Hypertension SANTANA (obstructive sleep apnea) Hematuria Cellulitis of arm, left History of DVT (deep vein thrombosis) Upper LEFT arm Numbness and tingling in left arm Hearing deficit History of compression fracture of spine Hx of constipation Allergic asthma Osteoporosis Oral herpes simplex infection Benign positional vertigo Polyarthralgia Hiatal hernia IBS (irritable bowel syndrome) Sicca syndrome Hyperlipidemia Depression Anxiety RAD (reactive airway disease) Pt. is unsure of this Diverticulosis Surgical History Surgical History Hx of tonsillectomy bladder suspencion Ligation of fallopian tube Oophrectomy, Left Colonoscopy - IV Sedation 2001 and 2009 Cholecystectomy Appendectomy Tobacco Smoking/Tobacco Use Status: Former Tobacco Use Alcohol Alcohol Intake: current Alcohol intake frequency: holidays/special occasions only Alcohol type: hard liquor Substance Use Substance use: Never Substance use type: does not use Details: alcohol: sept, wine with dinner Vital Signs and Lab Results Vital Signs Most Recent Vital Signs in EMR: Most Recent Vital Signs Temp Pulse Resp BP Pulse Ox 36.5 C 54 L 16 137/62 97 08/14/23 07:32 08/14/23 07:32 08/14/23 07:32 08/14/23 07:32 08/14/23 07:32 Lab Results Blood Type / Crossmatch: No Data to Display Complete Blood Count: Hemoglobin 12.6 g/dL (11.2-15.7) 07/25/23 09:19 Hematocrit 37.4 % (36.0-46.0) 07/25/23 09:19 Complete Metabolic Panel: Sodium 138 mmol/L (136-145) 07/25/23 09:19 Potassium 4.4 mmol/L (3.5-5.1) 07/25/23 09:19 Chloride 103 mmol/L (98-107) 07/25/23 09:19 Carbon Dioxide 25.1 mmol/L (21.0-32.0) 07/25/23 09:19 BUN 14 mg/dL (7-18) 07/25/23 09:19 Creatinine 1.2 mg/dL (0.55-1.02) H 07/25/23 09:19 Est GFR (CKD-EPI 2020) 48.09 (mL/min/1.73m2) 07/25/23 09:19 Calcium 9.4 mg/dL (8.5-10.1) 07/25/23 09:19 Albumin 3.9 g/dL (3.4-5.0) 07/25/23 09:19 Glucose 100 mg/dL (74-106) 07/25/23 09:19 Liver Function Panel: Alanine Aminotransferase (ALT/SGPT) 21 U/L (14-59) 07/25/23 09: 19 Aspartate Amino Transf (AST/SGOT) 23 U/L (15-37) 07/25/23 09:19 Coagulation Panel: No Data to Display Cardiac Panel: No Data to Display Arterial Blood Gas: No Data to Display Venous Blood Gas: No Data to Display Pancreas Panel: No Data to Display Thyroid Panel: No Data to Display Infectious Disease: No Data to Display Blood Cultures: No Data to Display Toxicology Panel: No Data to Display Imaging and Studies Imaging and Studies Study information below may be from another EMR and interpreted by another provider. Please see original notes in EMR for more complete details. Stress Test Summary: Patient Name: WENDY ARANA Unit #: [id number] Loc: Ordering Provider: Tyra Garcia M.D. Status: REG [facility] Primary Care Provider: Tyra Garcia M.D. Date of Exam: 06/23/20 Sex: F Admission Date: 06/23/20 : 1950 Age: 70 Exam(s) a NM:NM MPI rest & stress grp APPROVED REPORT Exam: Exercise Treadmill Patient Location: Out-Patient Room/Bed: Stress Nurse: Leticia Alvarenga RN BMI: 0 Baseline Rhythm: Sinus Rhythm Comment: Left Phelps Deviation Indications: For the past several months patient reports left sided chest ???heaviness??? with walking and activity. Medical History Medical History: GERD, Depression, Anxiety. Cardiac Medications: Metoprolol Succinate, Aspirin. Allergies: Crestor, Atorvastatin, Nizoral, Sulfa, Lovastatin, Plaquenil, Mold, Dust, Red Yeast Rice. Cardiac Risk Factors: FHX of CAD, HTN, Hyperlipidemia, Asthma Previous Cardiac Procedures: None Pretest Chest Pain Characteristics: None Exercise History: Physically active Physical Disabilities: None Lung Sounds: Clear to auscultation Heart Sounds: Regular Stress Test Details Test: Exercise stress testing was performed using a Sal protocol. Nuclear Acquisition: Rest Tc-99m/Stress Tc-99m 1 day Rest Isotope: Tc-99m Sestamibi. Dose: 9.8 Date: 06/23/2020 Injection Time: 0930 Stress Isotope: Tc-99m Sestamibi. Dose: 31.0 Date: 06/23/2020 Injection Time: 1125 HR Resting HR Supine: 64 bpmMax Heart Rate (APMHR): 151 bpm Resting HR Standin bpmTarget HR (85% APMHR): 128 bpm Max HR Achieved: 140 bpm % of APMHR: 92 HR response to stress: Normal HR response to stress BP Resting BP Supine: 150/90 mmHg Resting BP Standin/90 mmHg Max BP: 182/72 mmHg BP response to stress: Normal blood pressure response to stress. ECG Resting ECG: Sinus Rhythm Stress ECG: No significant St segment changes noted. Clinical Reason for Termination: Fatigue Stress Symptoms: None reported per patient. Exercise duration: 8 min15 sec Highest Stage Reached: Stage 3: 3.4 mph at 14% grade. Exercise capacity: 10.16 METs Functional Capacity: Above average capacity Stress ECG Conclusion 1. Resting electrocardiogram was normal 2. The patient exercised on the Sal protocol and completed a workload of 10.16 METs, 8 minutes and 15 seconds. 3. Normal heart rate and blood pressure response to exercise. The patient achieved 92% of predicted heart rate for age 4. There were no symptoms to suggest angina 5. Electrocardiographically the test was negative for myocardial ischemia 6. There were no dysrhythmias 7. Heller treadmill score is 8, low risk Stress Test Summary STAGETime (mins)Speed (mph)Grade (%)HRBPSYMPTOMSMETS Oydtzf43220/90 Teroukkc22132/90 [id number]/764.6 [id number]/687 1 min [id number]/66 3 min qhjarpkk79252/72 6 min dprjhkia93299/82 MPI Conclusion Normal myocardial perfusion without evidence of ischemia or prior infarction EF 71% Radiologist Interpretation Radiologist agrees with Fast Food Delivery Driver's Interpretation. Radiologist Interpretation by: Kenroy Machado MD Interpretation Date/Time: 07/04/2020 14:47:03 Ordered By: Tyra Garcia M.D. CC: NEAL FLORES MD Dictated By: Neal Flores M.D. 06/23/20 1143 <Electronically signed by Neal Flores M.D. in OV> 07/05/20 0912 Transcribed By: Neal Flores MD This is privileged, confidential information intended only for the provider named. Any use or distribution by any person other than this provider is strictly prohibited. If you receive this report in error, please notify us immediately at [phone] and return the original report to us at the address above. Thank-you. Echocardiogram Summary: Patient Name: WENDY ARANA Unit #: [id number] Loc: DI Ordering Provider: Tyra Garcia M.D. Status: REG CLI Primary Care Provider: Tyra Garcia M.D. Date of Exam: 01/25/21 Sex: F Admission Date: 01/25/21 : 1950 Age: 70 Exam(s) a US:US echocardiogram APPROVED REPORT EXAM: Comprehensive 2D, Doppler, and color-flow Echocardiogram Patient Location: Out-Patient [employer] Supervisor: Kaleigh Swartz RDCS (AE) Indications: Chest pain, Dyspnea on exertion, Murmur Other Information Study Quality: Good Conclusion Left Ventricle : The left ventricle is normal size. The left ventricular systolic function is normal. The left ventricular ejection fraction is within the normal range. There is normal left ventricular wall thickness. There is normal LV segmental wall motion. The left ventricular diastolic function is normal. LVEF is 65%. Right Ventricle : The right ventricle is normal size. The right ventricular systolic function is normal. The RVSP is 30.4 mmHg. Atria : The left atrium size is normal. The right atrium size is normal. Valves: There are no hemodynamically significant valvular lesions. Great Vessels : The aortic root is normal in size. The ascending aorta is normal in size. Aortic arch is normal in caliber. IVC is normal in size and collapses >50% with inspiration. Please see remainder of study for further details. Wall motion Left Ventricle The left ventricle is normal size. The left ventricular systolic function is normal. The left ventricular ejection fraction is within the normal range. There is normal left ventricular wall thickness. There is normal LV segmental wall motion. The left ventricular diastolic function is normal. There is no ventricular septal defect visualized. LVEF is 65%. Right Ventricle The right ventricle is normal size. The right ventricular systolic function is normal. The RVSP is 30.4 mmHg. Atria The left atrium size is normal. The right atrium size is normal. The interatrial septum is intact with no evidence for an atrial septal defect. Aortic Valve The aortic valve is normal in structure. Aortic valve is trileaflet. There is no aortic valvular stenosis. No aortic regurgitation is present. Mitral Valve The mitral valve is normal in structure. No evidence of mitral valve stenosis. Trace mitral regurgitation. Tricuspid Valve The tricuspid valve is normal in structure. There is no tricuspid valve stenosis. Trace tricuspid regurgitation. Pulmonic Valve The pulmonary valve is normal in structure. There is no pulmonic valvular stenosis. Trace pulmonic regurgitation. Great Vessels The aortic root is normal in size. The ascending aorta is normal in size. Aortic arch is normal in caliber. IVC is normal in size and collapses >50% with inspiration. Pericardium There is no pericardial effusion. 2D Dimensions IVSD d PLAX 0.86 cm F: 0.6-1.0LV Vol A2C d MOD 70.8 mL LVPW d PLAX 0.87 cm F: 0.6 - 1.0LV Vol A4C d MOD 86.6 mL LVID d PLAX 4.53 cm F: 3.8 - 5.2LA vol/ BSA A4C s A-L22.1 mL/m2 LVDs 2.90 cm F: 2.2 - 3.5LA Area A4C s MOD 16.55 cm2 Ao Root d 2.40 cm F: 2.7 - 3.3LV EF A4C MOD 64.5 % RA Area A4C10.65 cm2LV EF A2C MOD 61.6 % RA Vol/ BSA A4C s A-L 11.3 mL/m2LV EF Biplane MOD 62.0 % Ao Asc Diam d 2.73 cm F: 2.3 - 3.1SV48.51 mL LV EF Teichholz 65.2 %SV Index25.47 mL/m2 LVEF (Almendarez's)62.04 % F: 54 - 74 LV Tewglm78.63 mL F: 46 - 106 LV Volume Index31.38 mL/m2 F: 29 - 61 LV Vol Biplane MOD 78.2 mL FS35.60 % M-Mode TAPSE 2.60 cm (M/F) >1.7 LV Diastology MV E' medial0.127 (>0.07 m/s)E/A Ratio 1.1 LV E/e MED6.70 (<14)MV E Vmax 0.85 (0.4-1.3 m/s) MV E' lateral0.117 (>0.1 m/s)MV A Vmax 0.75 (0.4-1.3 m/s) LV E/e LAT7.25 (<14)MV E/A Ratio 1.10 MV E/E' medial 6.70 MV E/E' lateral7.26 Aortic Valve LVOT Area3.06 cm2AoV Area Vmax2.44 cm2 LVOT Vmax 1.29 m/sAoV Area/ BSA (Vmax)1.28 cm2/m2 LVOT Mean Ashwin.0.79 m/sAVA Mean Ashwin.2.34 cm2 LVOT Peak Grad 6.7 mmHgAVA Mean Ashwin. Index1.23 cm2/m2 LVOT Mean Grad 3.0 mmHg LVOT VTI0.236 m LVOT Diam s 1.95 cm AoV Vmax1.62 m/s Velocity Ratio 0.79 AoV Mean Ashwin.1.03 m/s AoV Peak Grad10.5 mmHg LVOT SV 72.28 mL AoV Mean Grad4.9 mmHg AoV VTI0.317 m AoV Area VTI2.28 cm2 AoV Area/ BSA (VTI)1.20 cm/m2 Mitral Valve MV DT 226 (160-240 msec)MR Vmax 4.47 m/s MV PHT65 msecMR VTI 1.350 m MV Area PHT 3.36 cm2MR Peak Grad 79.8 mmHg MV VTI 0.369 mMR Mean Grad 58.7 mmHg MV VTI Annulus 0.364 m MV Area VTI 1.94 (4.0-6.0 cm2) Pulmonary Valve PV Vmax 1.04 (0.5-1.5 m/s)RVOT Peak Gr.2.08 mmHg PV Peak Grad 4.3 mmHgRVOT Mean Gr.1.15 mmHg PV Mean Grad 2.2 mmHgRVOT VTI0.185 m PV VTI 0.248 mRVOT Vmax 0.72 m/s Tricuspid Valve TR Peak Grad 27.3 mmHgTR Vmax 2.62 m/s RA Pressure 3.00 mmHg RVSP (TR) 30.4 mmHg Ordered By: Tyra Garcia M.D. CC: Dictated By: Neal Flores M.D. 01/25/21 1249 <Electronically signed by Neal Flores M.D. in OV> 01/26/21 0937 Transcribed By: Neal Flores MD This is privileged, confidential information intended only for the provider named. Any use or distribution by any person other than this provider is strictly prohibited. If you receive this report in error, please notify us immediately at [phone] and return the original report to us at the address above. Thank-you. Anesthesia Assessment and Plan Anesthesia History Personal History: No History of Anesthesia Complications Family History: No Family History of Anesthesia Complications Exercise Tolerance Exercise Tolerance: Metabolic Equivalents>4 Pertinent Negatives Pertinent Negatives: No Symptoms of GERD Cardiac & Pulmonary Exam Cardiac Exam: Normal S1/S2 Heart Sounds Pulmonary Exam: Clear Bilateral Breath Sounds Implantable Cardiac Device Does patient have a Pacemaker or an ICD?: No Airway Exam Known Difficult Airway: No Mallampati Class: 2 Mouth Opening: Normal (> 3cm) Thyromental Distance: Greater than 3 cm Neck Range of Motion: Full ROM Neck Circumference: Normal Teeth Condition: Normal Dentition ASA Classification ASA Score: ASA 2 Emergency Case?: No NPO Status NPO Status: NPO Clears >2 hours, Solids >8 hours Anesthesia Plan Resuscitation Status: Full Code Anesthesia Technique: General Anesthesia Airway Planned: Natural Airway Monitors Used: Standard Monitors Preoperative Comments:: 73 yo patient here for EGD due to worsening reflux and dysphagia.
[2023-08-14 07:50] VITALS: BMI 30.9
--- NOTE | 2023-08-14 08:19 | ENDO_ITS ---
Date of service: 08/14/23 Time of Service: 08:19 Endoscopy Report DATE OF PROCEDURE: 08/14/23 PRE-OP DIAGNOSIS: GERD and Dysphagia POST-OP DIAGNOSIS: same (and Hiatal hernia and Bile reflux) PROCEDURE: EGD with biopsies SURGEON: Lanny Dougherty ANESTHESIA TYPE: General:No Airway ESTIMATED BLOOD LOSS: 5 COMPLICATIONS: None DISPOSITION: same day INDICATIONS: Cherelle is a very pleasant 73-year-old female who comes in because of worsening reflux symptoms as well as new onset dysphagia. I took 30 minutes to explain the pathophysiology of reflux as well as that of dysphagia. We reviewed the procedure in detail as well as the possible complications. After conversation the patient seemed to have a good understanding of both the procedure as well as the possible complications. Risks, benefits and complications have been reviewed. Complications include but are not limited to bleeding, pain, perforation, sore throat, aspiration, and adverse reaction to the medications. Questions were entertained and answered to their satisfaction and they wished to proceed. No guarantees were given or implied. 08:20 I saw the patient in [facility] prior to the procedure. We reviewed the risks, benefits and possible complications. She has no further questions, has signed the consent and we will proceed with EGD FINDINGS: 1. Inflammation in the stomach and at the GE junction 2. Reflux of Bile into the stomach 3. Small Hiatal hernia PROCEDURE DESCRIPTION: After informed consent was obtained the patient was take to the procedure room and placed in a supine position. Monitors were applied and a time out was done. The patients name, date of , procedure type, allergies to medications and metal in their body was reviewed. A bite block was placed and the patient was sedated. Once sedated and comfortable the gastroscope was advanced through the oropharynx which was grossly normal into the esophagus. The proximal and mid- esophagus were normal. In the distal esophagus there was evidence of mild inflammation and a small Hiatal Hernia. There was no narrowing of the esophagus noted. The scope was advanced into the stomach and through the pylorus into the 3rd portion of the duodenum. The duodenum was noted to be normal. Biopsies were done. The scope was retracted back into the stomach. There was some petechial bleeding noted in the body. There were a handfull of benign fundic gland polyps. Biopsies were done to rule out H. pylori. There were no ulcers. The scope was retroflexed. The cardia and fundus were noted to be normal. T here was a small hiatal hernia noted. The scope was retracted back into the esophagus and biopsies were done of the GE junction to rule out Dave's. The Z line was regular. The GE junction was at 35 cm. The scope was removed and the patient was woken up and taken back to [facility] in stable condition. Follow up: 2 weeks
--- NOTE | 2023-08-14 08:40 | STOM_PTH ---
PATIENT: Cherelle Louise LOC: [facility] U#:[id number] AGE/SX: 73/F ROOM: RE08/14/[address]: Lanny Dougherty MD : [id number] BED: DIS: 08/14/2023 SPEC #: [id number] RECD: 08/14/23 12:50 STATUS: VILMA REQ #: [id number] ELI: 08/14/23 08:[address]: Lanny Dougherty DEPT: Surgical Specimen RECD BY: Shrutih Guillen ENTERED: 08/14/23 12:52 SP TYPE: STOMACH OTHR DR: Tyra Garcia V Tissues: 1 - BIOPSY BOWEL 2 - STOMACH BIOPSY 3 - STOMACH BIOPSY 4 - ESOPHAGUS BIOPSY Procedures: GROSS AND MICRO LEVEL 4 Comments: [id number]
[2023-08-14 09:01] VITALS: BP 114/52; PULSE 50; RESP 14; TEMP 36.4; O2SAT 95
--- NOTE | 2023-08-14 09:03 | PDOC.DSDIS_ITS ---
Date of service: 08/14/23 Time of Service: 09:03 Discharge Plan Disposition Patient Disposition: Home Condition: Stable Discharge Details Reason For Visit: GERD,Dysphagia Attending Provider: Lanny Dougherty Primary Care Provider: Tyra Garcia V Home Meds and New Rx's Prescriptions: New famotidine [Pepcid] 40 mg tablet 40 mg PO QHS Qty: 90 3RF sucralfate [Carafate] 1 gram tablet 1 g PO TID 30 Days Qty: 90 0RF Rx Instructions: Please take 1 tab 30 minutes before meals. If you have a hard time swallowing the pill you can dissolve in 2 oz of water. Continued cholecalciferol (vitamin D3) 125 mcg (5,000 unit) capsule 125 mcg PO DAILY fluoxetine [Prozac] 20 MG capsule 30 mg PO DAILY levalbuterol tartrate [Xopenex HFA] 15 GM HFA aerosol inhaler 15 gm Inhalation PRN PRN losartan 25 mg tablet 50 mg PO DAILY metoprolol succinate 25 mg tablet extended release 24 hr 25 mg PO DAILY simethicone [Gas-X Extra Strength] 125 mg Tablet,Chewable 125 mg PO PRN PRN calcium carbonate [Tums] 200 mg calcium (500 mg) Tablet,Chewable 200 mg PO PRN PRN valacyclovir 1,000 MG tablet 1,000 mg PO DAILY Patient Comments: ran out a few days ago ibuprofen 600 MG tablet 600 mg PO QID PRN PRNQty: 30 0RF Discontinued lansoprazole [Prevacid] 15 MG capsule,delayed release(DR/EC) 30 mg PO DAILY Qty: 30 3RF Patient Comments: pt. states she has weaned herself off last summer Discharge Instructions Instructions: Hiatal Hernia (DC), Gastritis (DC), Diet for Stomach Ulcers and Gastritis (ED), GERD (Gastroesophageal Reflux Disease) (DC), Gastric Polyps (DC) Additional Instructions: Findings: 1. Mild inflammation of your stomach 2. Small Hiatal hernia 3. Evidence of reflux. No narrowing of the esophagus Follow up: 2 weeks Medications: Please start taking Pepcid 40 mg at night and Carafate 1 gm before meals. If the Carafate is difficult to swallow then you can dissolve it in 2-3 oz of water and take it that way. Diet: Please follow a low acid diet until you see me in the office Please call if you develop: fevers >101.5 Nausea or Vomiting Abdominal pain that is not transient Rectal bleeding that is more then a tbsp A hard abdomen and inability to pass gas DAY SURGERY UNIT POST ENDOSCOPY INSTRUCTIONS Instructions for everyone who is given Anesthesia: For your safety, please do the following for the next 24 Hours: a. Do not drive or operate dangerous equipment b. Do not drink alcohol beverages or use any recreational drugs for the first 24 hours or while taking pain medications. The medications in your body may have a reaction that can be dangerous. c. Do not make any important decisions or sign any important papers 1. Generally there are no restrictions on your activity after a day or so has gone by, but you may feel a bit fatigued for a few days. 2. After you arrive home you may have a light meal and return to a normal diet as you can tolerate it without feeling sick to your stomach. 3. After surgery, you may feel pain or discomfort. This should be only transient, but if it persists please contact your doctor. 4. If there are any questions regarding the findings of your procedure, please feel free to contact your doctor. 6. If you are unable to contact your doctor with a problem, contact the hospital at [phone]. 7. Continue all your regular medications unless directed otherwise. I understand the above instructions and have no questions. Signature of Patient or Responsible Adult Escort Date/Time Name of Responsible Adult Escort Signature of Nurse Date/Time Referrals: Lanny Dougherty MD [ [facility] STAFF PHYSICIAN] - 08/30/23 11:30 am Activity:: Activity as Tolerated Diet:: low acid Discharge Orders Discharge Orders: Discharge Order (Routine); Ordered 08/14/23 Ordered By: Lanny Dougherty DS: Diagnosis Discharge Diagnosis (1) GERD (gastroesophageal reflux disease): Status: Chronic Asessment and Plan: Patient is seen and examined after their endoscopy. Patient had minimal sore throat. She has been able to tolerate liquids. she does not have any Nausea or Vomiting. She is not having any chest pain or shortness of breath. She has been able to pass gas and is not having any abdominal pain or distention. She has not vomited any blood. The vital signs have been stable-see nursing notes. We discussed findings on their endoscopy We reviewed the importance of lifestyle modifications- see diet recommendations We reviewed any new medications that the patient may be prescribed- see medicine reconciliation. Patient will either be sent a letter with the biopsy results or follow up in the office- see discharge instructions Patient was given explicit instructions for emergency follow up post endoscopy- see discharge instructions Patient verbalized understanding and was discharged in stable and satisfactory condition. See nursing notes. (2) Gastritis: Status: Acute
--- NOTE | 2023-08-14 09:34 | W.ANESPOSTOP ---
Postoperative Evaluation Date, Time and Location Date Performed: 08/14/23 Time Performed: 09:03 Patient Location: Day Surgery Unit Vital Signs Most Recent Imported Vital Signs: Most Recent Vital Signs Temp Pulse Resp BP Pulse Ox 36.4 C L 50 L 14 114/52 L 95 08/14/23 09:01 08/14/23 09:01 08/14/23 09:01 08/14/23 09:01 08/14/23 09:01 Pain Score Most Recent Pain Score: Most Recent Pain Score Pain Level 0 08/14/23 09:01 Assessment Mental Status: Awake (Alert & Oriented to Patient Baseline) Airway and Respiratory Function: Patent airway with normal (patient baseline) respiratory exam Cardiovascular Function: Hemodynamically Stable Hydration Status: Adequately Hydrated Nausea & Vomiting: No Nausea or Vomiting Pain: Pt. Denies Any Pain Peripheral Nerve Block: Patient did not receive a nerve block
[2023-08-14 09:39] VITALS: BP 127/64; PULSE 53; RESP 16; TEMP 36.2; O2SAT 97
== END 2023-08-14 10:30 | disposition home or self-care (01) ==
PROVIDERS: PCP Family Medicine; Visit Provider Surgery
PROC: 0DJ68ZZ Inspection of Stomach, Via Natural or Artificial Opening Endoscopic (ICD-10-PCS; CPT 43235; principal; 2023-08-14 08:30)
DX: K21.9 Gastro-esophageal reflux disease without esophagitis (principal); R13.10 Dysphagia, unspecified; Z80.0 Family history of malignant neoplasm of digestive organs; K44.9 Diaphragmatic hernia without obstruction or gangrene; K31.7 Polyp of stomach and duodenum; K20.90 Esophagitis, unspecified without bleeding
CPT/HCPCS: 43239; 88305; J2001

== ENCOUNTER → 2023-08-30 11:18 | Outpatient (BNVA) | payer OTHER, SELFPAY | PROVIDERS: PCP Family Medicine; Referring Provider Family Medicine; Visit Provider Surgery | DX: K21.9 Gastro-esophageal reflux disease without esophagitis (principal); R13.10 Dysphagia, unspecified | CPT/HCPCS: 99213 ==

== ENCOUNTER → 2024-02-17 02:41 | Outpatient (CLI) | payer MEDICARE, SELFPAY ==
--- NOTE | 2024-02-17 | DI.MAMMO_ITS ---
Exam(s) MAMMO SCREENING EXAM: MAMMO SCREENING CLINICAL HISTORY: SCREENING, Z12.31. TECHNIQUE: Bilateral full field digital CC and MLO mammographic images were obtained with 3D tomosyn thesis and utilizing computer aided detection (CAD). COMPARISON: Prior mammograms were reviewed. FINDINGS: There are 2 asymmetric densities-possible nodules in the right breast seen on 3D CC images. One of t hese is located 9 cm in from the nipple on the CC view, lateral of center and measures 8 x 5 mm.. Sp ot compression view recommended. The other asymmetric nodular density in the right breast is located 7 cm in from the nipple on the CC view, measuring approximately 7 x 5 mm. In the opposite-left breast there are no new significant focal findings. Benign-appearing calcificat ions in left breast are again noted, both micro and macro calcifications. There is no significant architectural distortion nor skin thickening-retraction. IMPRESSION: 1. No radiographic evidence of malignancy in left breast. 2. 2 nodular densities in the right breast, as described above. Spot compression views and complete right breast ultrasound recommended. BI-RADS Category 0 - Assessment Incomplete: Need additional imaging evaluation Breast Density - Category C - Heterogeneously dense Breast density Category C or D implies that the patient has dense breast tissue. Dense breast tissue can make it harder to find cancer on a mammogram. Dense breast tissue is also associated with an incr eased risk of breast cancer. This information about the result of the mammogram report was provided to the patient to raise their awareness. Use this report when you speak with the patient about their risks for breast cancer, which includes their family history. At that time, you may recommend additional screening tests (Ultrasoun d or MRI) as these tests may add significant information. A negative radiographic report should not delay biopsy if a dominant or clinically suspicious mass is present. Up to ten percent of cancers are not identified on mammography. A negative report may reinforce clinical impression. Adenosis and dense breasts may obscure an underlying neoplasm. False positive reports average 6 to 10%. Patient will receive a letter notifying them of these results.
== END ==
PROVIDERS: PCP Family Medicine; Visit Provider Family Medicine
DX: Z12.31 Encounter for screening mammogram for malignant neoplasm of breast (principal); R92.8 Other abnormal and inconclusive findings on diagnostic imaging of breast
CPT/HCPCS: 77063; 77067

== ENCOUNTER → 2024-02-19 02:42 | Outpatient (CLI) | payer MEDICARE, SELFPAY ==
--- NOTE | 2024-02-19 | DI.MAMMO_ITS ---
Exam(s) MG MAMMO SCREEN CALL BACK UNI US BREAST RT COMPLETE EXAM: MG MAMMO SCREEN CALL BACK UNI-RIGHT COMPLETE RIGHT BREAST ULTRASOUND CLINICAL HISTORY: F/U 2 RT NODULAR DENSITIES, F/U ABNL MAMMO,R92.8. TECHNIQUE: Unilateral spot mammographic images obtained with 3D tomosynthesisand utilizing computer aided detection (CAD). . Complete RIGHT breast Ultrasound was also performed, including all 4 quadrants, the retroareolar omid on, and the ipsilateral axilla. COMPARISON: Prior mammograms were reviewed. This additional imaging was performed due to findings described on the recent screening mammogram of 02/17/2024. FINDINGS: DIAGNOSTIC MAMMOGRAM: Additional mammographic views performed todaynot dissipate nodules. Proceeded with ultrasound. COMPLETE RIGHT BREAST ULTRASOUND: Ultrasound performed today reveals a benign 3 millimeter microcysts at the 1 o'clock position. At there is a 2 millimeter benign microcyst.. The 10 o'clock position there are 2 micro cysts. One of these appears hemorrhagic. One measures 6 x 5 and the other measures 5 x 4 mm. Two other small benign microcysts are noted at 11 o'clock position. THE 9 O'CLOCK POSITION there is a taller than wider nodular density measuring approximately 8 by 4 mm , exhibiting somewhat irregular borders. This most probably corresponds to the more lateral located n odule on the mammogram. This requires biopsy Scanning of the ipsilateral axilla reveals no significant adenopathy. IMPRESSION: At the 9 o'clock position of the right breast there is a taller than wider 8 x 4 mm nodular density with concerning appearance and requiring ultrasound-guided core biopsy. This most probably correspond s to the laterally located is nodular density on the mammogram. The patient was informed of these findings and recommendations by myself prior to leaving the departm ent today. Report recommendations also called by myself to Dr. Romero who is covering for the referring physicia n. BI-RADS Category 4 - Suspicious Abnormality: Biopsy should be considered Breast Density - Category C - Heterogeneously dense Breast density Category C or D implies that the patient has dense breast tissue. Dense breast tissue can make it harder to find cancer on a mammogram. Dense breast tissue is also associated with an incr eased risk of breast cancer. This information about the result of the mammogram report was provided to the patient to raise their awareness. Use this report when you speak with the patient about their risks for breast cancer, which includes their family history. At that time, you may recommend additional screening tests (Ultrasoun d or MRI) as these tests may add significant information. A negative radiographic report should not delay biopsy if a dominant or clinically suspicious mass is present. Up to ten percent of cancers are not identified on mammography. A negative report may reinforce clinical impression. Adenosis and dense breasts may obscure an underlying neoplasm. False positive reports average 6 to 10%. Patient will receive a letter notifying them of these results.
== END ==
PROVIDERS: PCP Family Medicine; Visit Provider Family Medicine
DX: R92.8 Other abnormal and inconclusive findings on diagnostic imaging of breast (principal); Z12.31 Encounter for screening mammogram for malignant neoplasm of breast
CPT/HCPCS: 76642; 77063; 77067

== ENCOUNTER → 2024-05-02 20:51 | Emergency (ER) | payer MEDICARE, SELFPAY ==
[2024-05-02 20:57] VITALS: BP 137/63; PULSE 67; RESP 12; TEMP 37.1; O2SAT 95
--- NOTE | 2024-05-02 21:22 | ED.GENADUL_ITS ---
Discharge Plan Disposition Patient Disposition: Home Condition: Stable Discharge Details Clinical Impression: Localized swelling of right forearm Primary Care Provider: Tyra Garcia V ED Provider: Toro Coulter Home Meds and New Rx's Prescriptions: New Eliquis DVT-PE Treat 30D Start 5 mg (74 tabs) tablets,dose pack See Rx Instructions .ROUTE .COMPLEX Qty: 74 0RF Rx Instructions: orally per package directions Continued cholecalciferol (vitamin D3) 125 mcg (5,000 unit) capsule 125 mcg PO DAILY fluoxetine [Prozac] 20 MG capsule 30 mg PO DAILY levalbuterol tartrate [Xopenex HFA] 15 GM HFA aerosol inhaler 15 gm Inhalation PRN PRN losartan 25 mg tablet 50 mg PO DAILY metoprolol succinate 25 mg tablet extended release 24 hr 25 mg PO DAILY simethicone [Gas-X Extra Strength] 125 mg Tablet,Chewable 125 mg PO PRN PRN calcium carbonate [Tums] 200 mg calcium (500 mg) Tablet,Chewable 200 mg PO PRN PRN valacyclovir 1,000 MG tablet 1,000 mg PO DAILY Patient Comments: ran out a few days ago ibuprofen 600 MG tablet 600 mg PO QID PRN PRNQty: 30 0RF Discharge Instructions Additional Instructions: You should be able to get an ultrasound on Saturday. If it is positive you can fill the Eliquis I sent to the [facility] pharmacy. Take a 10 mg dose tomorrow morning, take a 10 mg dose tomorrow evening, take a 10 mg dose Saturday morning. If you develop any shortness of breath or severe pain return to the emergency department for reevaluation HPI General Mode of arrival: ambulatory . Date/Time Provider Initiated Documentation: 05/02/24 21:02 . Limitations to Documentation: no limitations . Information obtained by: patient . History of Present Illness 73 year old F presents to the emergency department with the chief complaint of right arm swelling, described as mild, Quality is described as aching, Patient started experiencing this day(s) (3) and it has been constant. No relieving factors improve symptom(s), No exacerbating factors reported . Patient notes no other symptoms.. Patient did receive the following treatments prior to arrival, none Related Data Home Medications ?Medication ?Instructions ?Recorded ?Confirmed Prozac 20 mg capsule (fluoxetine) 30 mg PO DAILY 11/30/14 05/02/24 Xopenex HFA 45 mcg/actuation 15 gm inhalation PRN PRN 11/30/14 05/02/24 aerosol inhaler (levalbuterol tartrate) ibuprofen 600 mg tablet 600 mg PO QID PRN PRN #30 tabs 11/17/16 05/02/24 valacyclovir 1 gram tablet 1,000 mg PO DAILY 11/17/16 05/02/24 simethicone 125 mg chewable tablet 125 mg PO PRN PRN 11/25/19 05/02/24 (Gas-X Extra Strength) calcium carbonate (Tums) 200 mg PO PRN PRN 11/27/19 05/02/24 losartan 25 mg tablet 50 mg PO DAILY 08/05/23 05/02/24 metoprolol succinate 25 mg 25 mg PO DAILY 08/05/23 05/02/24 tablet,extended release 24 hr cholecalciferol (vitamin D3) 125 125 mcg PO DAILY 08/12/23 05/02/24 mcg (5,000 unit) capsule apixaban 5 mg (74 tabs) tablets in See Rx Instructions PO .COMPLEX 05/02/24 a dose pack (Eliquis DVT-PE Treat #74 dose pk 30D Start) Previous Rx's ?Medication ?Instructions ?Recorded ibuprofen 600 mg tablet 600 mg PO QID PRN PRN #30 tabs 11/17/16 apixaban 5 mg (74 tabs) tablets in See Rx Instructions PO .COMPLEX 05/02/24 a dose pack (Eliquis DVT-PE Treat #74 dose pk 30D Start) Allergies Allergy/AdvReac Type Severity Reaction Status Date / Time amitriptyline (From Elavil) Allergy Severe Unknown Verified 05/02/24 21:25 atorvastatin Allergy Severe unknown Verified 05/02/24 21:25 bupropion (From Wellbutrin) Allergy Severe Other (See Verified 05/02/24 21:25 Comment) ketoconazole (From Nizoral) Allergy Severe Other (See Verified 05/02/24 21:25 Comment) rosuvastatin (From Crestor) Allergy Severe unknown Verified 05/02/24 21:25 Sulfa (Sulfonamide Allergy Intermediate Other (See Verified 05/02/24 21:25 Antibiotics) Comment) hydroxychloroquine sulfate Allergy Mild Unknown Verified 05/02/24 21:25 (From Plaquenil) lovastatin Allergy Mild Other (See Verified 05/02/24 21:25 Comment) aspirin AdvReac Mild Other (See Verified 05/02/24 21:25 Comment) red yeast rice AdvReac Mild Other (See Verified 05/02/24 21:25 Comment) General Stated Complaint: Orthopedic RODNEY: 3 Review of Systems All systems reviewed & are unremarkable except as noted in HPI and below Constitutional Constitutional: Denies chills, Denies fever(s) and Denies weakness Cardiovascular Cardiovascular: Denies chest pain and Denies dyspnea Respiratory Respiratory: Denies cough and Denies dyspnea Gastrointestinal Gastrointestinal: Denies abdominal pain, Denies nausea and Denies vomiting Neurologic Neurologic: Denies weakness Exam Const General: no acute distress Orientation: alert HENMT Head: normal to inspection Ears: external ears normal General nose exam: external nose normal Mouth: moist mucous membranes Eyes General: appearance normal, both eyes and all related structures Neck Neck: normal visual inspection Resp Effort & Inspection: normal respiratory effort and able to speak in complete sentences Cardio Rate: regular rate Skin General skin exam: no rashes or lesions noted Neuro General: patient alert and patient oriented x3 Extrem General: full ROM and capillary refill normal Psych Mental Status: mental status grossly normal Course Vital Signs Vital signs: Vital Signs Temperature 37.1 C 05/02/24 20:57 Pulse 67 05/02/24 20:57 Respiratory Rate 12 05/02/24 20:57 Blood Pressure 137/63 05/02/24 20:57 Pulse Oximetry 95 05/02/24 20:57 Temperature 37.1 C 05/02/24 20:57 Temperature Source Oral 05/02/24 20:57 Pulse 67 05/02/24 20:57 Respiratory Rate 12 05/02/24 20:57 Blood Pressure 137/63 05/02/24 20:57 Blood Pressure Position Sitting 05/02/24 20:57 Pulse Oximetry 95 05/02/24 20:57 Oxygen Delivery Method Room Air 05/02/24 20:57 Oxygen Flow Rate 0 05/02/24 20:57 Pain Level 1 05/02/24 20:57 Medical Decision Making 73-year-old female with a prior history of a DVT on her left arm a year ago after having an IV, comes in with complaints that she feels she may have another DVT in her right arm. She underwent a lumpectomy earlier this week at [facility], and had an IV in her right arm. She is developed some swelling of her distal right arm and is concerned for DVT so came here. She has no severe pain, no fevers, no rashes. She has full range of motion of the arm, she does have some mild swelling from the mid right forearm to the wrist, there is no erythema or warmth. She has intact sensation and pulses, intact cap refill. We unfortunately do not have ultrasound on the weekends but I discussed with her. She says she had no issues on Eliquis which she was on a year ago. Discussed risk benefits of empirically starting Eliquis until she can have an ultrasound done on Saturday and after discussion of risk and benefits she would prefer to start Eliquis. She was given a dose while here in the department and will be sent home for a dose tomorrow morning tomorrow night and Saturday morning and should be held again ultrasound on Saturday. I will provide her with a paper prescription in case her ultrasound on Saturday is positive to continue this. Advised that if it is negative she can stop taking Eliquis. She is stable for discharge and return precautions given Differential Diagnosis Differential Diagnosis: Phlebitis, DVT Medical Records Medical records reviewed: Yes I reviewed the patient's medical records. Quality:SDOH Health Related Social Needs: No Data to Display PFSH All Active Problems (Updated 05/02/24 @ 21:25 by Toro Coulter MD) Localized swelling of right forearm (Acute) Dysphagia (Acute) Shoulder pain, left (Acute) Diverticulosis (Acute) Colon polyps (Acute) Abdominal tenderness (Acute) Constipation (Acute) GERD (gastroesophageal reflux disease) (Chronic) Medical History Hypertension SANTANA (obstructive sleep apnea) Hematuria Cellulitis of arm, left History of DVT (deep vein thrombosis) Upper LEFT arm Numbness and tingling in left arm Hearing deficit History of compression fracture of spine Hx of constipation Allergic asthma Osteoporosis Oral herpes simplex infection Benign positional vertigo Polyarthralgia Hiatal hernia IBS (irritable bowel syndrome) Sicca syndrome Hyperlipidemia Depression Anxiety RAD (reactive airway disease) Pt. is unsure of this Diverticulosis Surgical History History of esophagogastroduodenoscopy biopsies taken Hx of tonsillectomy bladder suspencion Ligation of fallopian tube Oophrectomy, Left Colonoscopy - IV Sedation 2001 and 2009 Cholecystectomy Appendectomy Family History Mother Lung cancer Father Heart disease CHF and endocarditis Sister Thyroid cancer Brother , [place] at age 54. Myocardial infarction Social History Smoking/Tobacco Use Status: Former Tobacco Use Quit Date: 07/21/97 Smoking risk assessment performed?: Yes Alcohol Intake: current Alcohol Intake frequency: holidays/special occasions only Alcohol type: hard liquor Drug use: Never Substance use type: does not use Details: alcohol: sept, wine with dinner Housing: house Current gender identity: female Do you feel safe at home: Yes Do you feel safe in your relationship?: Yes Additional Social history: Pt. reports spouse takes steroid for COPD and he gets ugly, so pt. leaves the house, pt. states she has relatives to go to and feels like she has the situation under control
[2024-05-02] MEDS: Apixaban 5 MG TAB 10 MG PO (21:32)
--- NOTE | 2024-05-02 21:34 | NUR.NOTE ---
[facility] ultrasound requisition faxed to [facility]. Patient advised to call [facility] scheduling 05/04/24 anytime after 7am for appt. Patient given a copy of requisition.Nursing Note:
[2024-05-02 21:40] VITALS: BP 112/66; PULSE 67; RESP 12; O2SAT 96
== END | disposition home or self-care (01) ==
LOC: ER 21:38 → RED 21:44
PROVIDERS: Emergency Provider Emergency Medicine; PCP Family Medicine
DX: M79.601 Pain in right arm (principal); R22.31 Localized swelling, mass and lump, right upper limb
CPT/HCPCS: 99283

== ENCOUNTER → 2024-05-04 09:05 | Outpatient (CLI) | payer MEDICARE, SELFPAY ==
--- NOTE | 2024-05-04 | DI.US_ITS ---
Exam(s) US UPPER EXTREMITY VENOUS RT EXAM: US UPPER EXTREMITY VENOUS RT CLINICAL HISTORY: RT ARM SWELLING R22.31 TECHNIQUE: GRAYSCALE, COLOR, DOPPLER IMAGING OF THE VENOUS SYSTEM OF THE UPPER EXTREMITY-RIGHT COMPARISON: None FINDINGS: This is a positive study. There is occlusive superficial thrombophlebitis in the cephalic vein at the mid forearm level with in traluminal clot length of 6 cm. The remainder of the cephalic vein above the elbow level is patent. Other veins of the right upper extremity are patent with normal compression augmentation properties. IMPRESSION: 1. Positive study for intraluminal thrombus within the cephalic vein at the forearm level. Clot magy gth is approximately 6 cm. Report called by myself to ER physician DATA REPOSITORY:
== END ==
PROVIDERS: PCP Family Medicine; Visit Provider Emergency Medicine
DX: R22.31 Localized swelling, mass and lump, right upper limb (principal)
CPT/HCPCS: 93971

== ENCOUNTER 2024-05-04 11:19 | Emergency (ER) | payer MEDICARE, SELFPAY ==
[2024-05-04 11:26] VITALS: BP 130/68; PULSE 66; RESP 13; TEMP 36.6; O2SAT 97
--- NOTE | 2024-05-04 12:09 | ED.GENADUL_ITS ---
Discharge Plan Disposition Patient Disposition: Home Condition: Stable Discharge Details Clinical Impression: Superficial thrombophlebitis Primary Care Provider: Tyra Garcia V ED Provider: Bentley Ron Home Meds and New Rx's Prescriptions: No Action cholecalciferol (vitamin D3) 125 mcg (5,000 unit) capsule 125 mcg PO DAILY fluoxetine [Prozac] 20 MG capsule 30 mg PO DAILY levalbuterol tartrate [Xopenex HFA] 15 GM HFA aerosol inhaler 15 gm Inhalation PRN PRN losartan 25 mg tablet 50 mg PO DAILY metoprolol succinate 25 mg tablet extended release 24 hr 25 mg PO DAILY simethicone [Gas-X Extra Strength] 125 mg Tablet,Chewable 125 mg PO PRN PRN calcium carbonate [Tums] 200 mg calcium (500 mg) Tablet,Chewable 200 mg PO PRN PRN Eliquis DVT-PE Treat 30D Start 5 mg (74 tabs) tablets,dose pack See Rx Instructions .ROUTE .COMPLEX Qty: 74 0RF Rx Instructions: orally per package directions valacyclovir 1,000 MG tablet 1,000 mg PO DAILY Patient Comments: ran out a few days ago ibuprofen 600 MG tablet 600 mg PO QID PRN PRNQty: 30 0RF Discharge Instructions Additional Instructions: * given your risk factors, please continue the eliquis * follow with your oncology team and your PCP for repeat US and decision on when to stop medication HPI General Date/Time Provider Initiated Documentation: 05/04/24 11:37 . Limitations to Documentation: no limitations . Information obtained by: patient . HPI Narrative: 73-year-old female with past medical history of breast cancer and recent lumpectomy presents for ultrasound results. Patient presented to the emergency department over the weekend with concern for right arm pain where an IV had been placed she had some redness and tenderness over that area. Because ultrasound was not available, she was discharged on Eliquis and sent for ultrasound today. Patient reports that she has taken 3 doses of the Eliquis and that her symptoms seem to have improved. She denies any symptoms of chest pain or shortness of breath. She reports that she is currently being evaluated for breast malignancy. She states that she has a history of a large DVT in the left upper extremity last year that she took anticoagulation for. Related Data Home Medications ?Medication ?Instructions ?Recorded ?Confirmed Prozac 20 mg capsule (fluoxetine) 30 mg PO DAILY 11/30/14 05/04/24 Xopenex HFA 45 mcg/actuation 15 gm inhalation PRN PRN 11/30/14 05/04/24 aerosol inhaler (levalbuterol tartrate) ibuprofen 600 mg tablet 600 mg PO QID PRN PRN #30 tabs 11/17/16 05/04/24 valacyclovir 1 gram tablet 1,000 mg PO DAILY 11/17/16 05/04/24 simethicone 125 mg chewable tablet 125 mg PO PRN PRN 11/25/19 05/04/24 (Gas-X Extra Strength) calcium carbonate (Tums) 200 mg PO PRN PRN 11/27/19 05/04/24 losartan 25 mg tablet 50 mg PO DAILY 08/05/23 05/04/24 metoprolol succinate 25 mg 25 mg PO DAILY 08/05/23 05/04/24 tablet,extended release 24 hr cholecalciferol (vitamin D3) 125 125 mcg PO DAILY 08/12/23 05/04/24 mcg (5,000 unit) capsule apixaban 5 mg (74 tabs) tablets in See Rx Instructions PO .COMPLEX 05/02/2404/20 a dose pack (Eliquis DVT-PE Treat #74 dose pk 30D Start) Previous Rx's ?Medication ?Instructions ?Recorded ibuprofen 600 mg tablet 600 mg PO QID PRN PRN #30 tabs 11/17/16 apixaban 5 mg (74 tabs) tablets in See Rx Instructions PO .COMPLEX 05/02/24 a dose pack (Eliquis DVT-PE Treat #74 dose pk 30D Start) Allergies Allergy/AdvReac Type Severity Reaction Status Date / Time amitriptyline (From Elavil) Allergy Severe Unknown Verified 05/04/24 11:30 atorvastatin Allergy Severe unknown Verified 05/04/24 11:30 bupropion (From Wellbutrin) Allergy Severe Other (See Verified 05/04/24 11:30 Comment) ketoconazole (From Nizoral) Allergy Severe Other (See Verified 05/04/24 11:30 Comment) rosuvastatin (From Crestor) Allergy Severe unknown Verified 05/04/24 11:30 Sulfa (Sulfonamide Allergy Intermediate Other (See Verified 05/04/24 11:30 Antibiotics) Comment) hydroxychloroquine sulfate Allergy Mild Unknown Verified 05/04/24 11:30 (From Plaquenil) lovastatin Allergy Mild Other (See Verified 05/04/24 11:30 Comment) aspirin AdvReac Mild Other (See Verified 05/04/24 11:30 Comment) red yeast rice AdvReac Mild Other (See Verified 05/04/24 11:30 Comment) General Stated Complaint: Recheck RODNEY: 4 Exam Narrative Exam Narrative: Review of Systems: All systems reviewed & are unremarkable except as noted in HPI and below Well-developed, no acute distress NCAT PERRL, normal conjunctiva RRR Unlabored respiratory effort Nondistended abdomen Extremities w/o deformity, no cyanosis, no edema No rashes or lesions. no focal neurologic deficits Appropriate mood and affect Course Vital Signs Vital signs: Vital Signs Temperature 36.6 C 05/04/24 11:26 Pulse 66 05/04/24 11:26 Respiratory Rate 13 05/04/24 11:26 Blood Pressure 130/68 05/04/24 11:26 Pulse Oximetry 97 05/04/24 11:26 Temperature 36.6 C 05/04/24 11:26 Temperature Source Oral 05/04/24 11:26 Pulse 66 05/04/24 11:26 Respiratory Rate 13 05/04/24 11:26 Respiratory Effort Normal, Non-Labored 05/04/24 11:30 Blood Pressure 130/68 05/04/24 11:26 Blood Pressure Position Sitting 05/04/24 11:26 Pulse Oximetry 97 05/04/24 11:26 Oxygen Delivery Method Room Air 05/04/24 11:26 Oxygen Flow Rate 0 05/04/24 11:26 Pain Level 0 05/04/24 11:26 Medical Decision Making Evaluation for ultrasound results. Patient had ultrasound performed this morning for evaluation of possible blood clot in the right upper extremity after IV placement. I discussed the ultrasound findings with the radiologist and there is concern for superficial occlusive thrombus approximately 6 cm in the cephalic vein below the elbow. There is no proximal clot. Based on current guidelines and recommendations, this clot may be watched with repeat ultrasound treatment however given her history of large DVT and her history of ongoing malignancy, this makes her at higher risk for DVT development. Furthermore she is showing improvement in her symptoms on the Eliquis. Discussed risks and benefits, and patient agrees that continuing the Eliquis would be beneficial to her. Prescription was sent to her pharmacy by the provider that she saw over the weekend. She should fill this prescription and start the medication. Continuation of the medication and repeat ultrasound imaging should be done at the discretion of her primary care physician. Return precautions advised. Discharged in good condition. Quality:SDOH Health Related Social Needs: No Data to Display PFSH All Active Problems Superficial thrombophlebitis (Acute) Localized swelling of right forearm (Acute) Dysphagia (Acute) Shoulder pain, left (Acute) Diverticulosis (Acute) Colon polyps (Acute) Abdominal tenderness (Acute) Constipation (Acute) GERD (gastroesophageal reflux disease) (Chronic) Medical History Hypertension SANTANA (obstructive sleep apnea) Hematuria Cellulitis of arm, left History of DVT (deep vein thrombosis) Upper LEFT arm Numbness and tingling in left arm Hearing deficit History of compression fracture of spine Hx of constipation Allergic asthma Osteoporosis Oral herpes simplex infection Benign positional vertigo Polyarthralgia Hiatal hernia IBS (irritable bowel syndrome) Sicca syndrome Hyperlipidemia Depression Anxiety RAD (reactive airway disease) Pt. is unsure of this Diverticulosis Surgical History History of esophagogastroduodenoscopy biopsies taken Hx of tonsillectomy bladder suspencion Ligation of fallopian tube Oophrectomy, Left Colonoscopy - IV Sedation 2001 and 2009 Cholecystectomy Appendectomy Family History Mother Lung cancer Father Heart disease CHF and endocarditis Sister Thyroid cancer Brother , [place] at age 54. Myocardial infarction Social History Smoking/Tobacco Use Status: Former Tobacco Use Quit Date: 07/21/97 Smoking risk assessment performed?: Yes Alcohol Intake: current Alcohol Intake frequency: holidays/special occasions only Alcohol type: hard liquor Drug use: Never Substance use type: does not use Details: alcohol: sept, wine with dinner Housing: house Current gender identity: female Do you feel safe at home: Yes Do you feel safe in your relationship?: Yes Additional Social history: Pt. reports spouse takes steroid for COPD and he gets ugly, so pt. leaves the house, pt. states she has relatives to go to and feels like she has the situation under control
== END 2024-05-04 12:04 | disposition home or self-care (01) ==
PROVIDERS: Emergency Provider Emergency Medicine; PCP Family Medicine
DX: I80.8 Phlebitis and thrombophlebitis of other sites (principal); I10 Essential (primary) hypertension; Z85.3 Personal history of malignant neoplasm of breast; Z86.718 Personal history of other venous thrombosis and embolism; Z79.01 Long term (current) use of anticoagulants; Z87.891 Personal history of nicotine dependence
CPT/HCPCS: 99284; 99283

== ENCOUNTER 2024-06-01 02:19 | Outpatient (CLI) | payer MEDICARE, SELFPAY ==
--- NOTE | 2024-06-01 | DI.DEXA_ITS ---
Exam(s) XR DEXA BONE DENSITY W/WO KHADRA EXAM: XR DEXA BONE DENSITY W/WO KHADRA CLINICAL HISTORY: SCREENING FOR OSTEOPOROSIS IN POSTMENOPAUSAL WOMAN,Z78.0,breast ca TECHNIQUE: COMPARISON: DX DEXA BONE DENSITY WITH KHADRA from 12/16/2014 FINDINGS: Lateral Spine Image: There are compression deformities which are new compared to the prior examinatio n at L3 and L4. Left hip: Total T-Score: -2.7. This compares to -1.9 on the prior examination. Total Z-Score: -1.0 T- and Z-scores: Findings are consistent with osteoporosis. Lumbar Spine: Total T-Score: -2.3. This compares to -3.1 on the prior examination. Total Z-Score: 0.0 T- and Z-scores: Findings are consistent with osteopenia. There is osteoporosis in the L2 vertebral body with a T-score of -3.3. There is osteoporosis in the left forearm with a total T-score of -2.8 and a Z-score of -0.5. IMPRESSION: Osteoporosis.
== END 2024-06-01 02:39 ==
LOC: DI 02:19
PROVIDERS: PCP Family Medicine; Visit Provider Family Medicine
DX: Z78.0 Asymptomatic menopausal state (principal); M81.0 Age-related osteoporosis without current pathological fracture
CPT/HCPCS: 77080

== ENCOUNTER 2024-07-27 01:53 | Outpatient (RCR) | payer MEDICARE, SELFPAY ==
[2024-07-27] MEDS: ZOLEDRONIC ACID/MANNITOL/WATER 5 MG/100 ML BTL 300 MG IVPB (14:14)
[2024-07-27] MEDS: Normal Saline Flush 10 ML SYR IVP (14:15)
== END 2024-08-20 23:59 | disposition home or self-care (01) ==
LOC: INF 01:53
PROVIDERS: PCP Family Medicine; Visit Provider Nurse Practitioner Family
DX: M81.0 Age-related osteoporosis without current pathological fracture (principal)
CPT/HCPCS: 96365; J3489

== ENCOUNTER 2024-09-07 10:47 | Emergency (ER) | payer MEDICARE, SELFPAY ==
[2024-09-07 11:14] VITALS: BP 144/74; PULSE 72; RESP 16; TEMP 36.7; O2SAT 97
--- NOTE | 2024-09-07 11:15 | DI.US_ITS ---
Exam(s) US LOWER EXTREMITY VENOUS LT EXAM: US LOWER EXTREMITY VENOUS LT CLINICAL HISTORY: Pain swelling TECHNIQUE: Grayscale, color, and doppler imaging of the deep venous system of the LEFT lower extremi ty was performed. COMPARISON: NONE FINDINGS: There is a positive study. There is intraluminal thrombus evident with in the left popliteal vein and extending into the ipsilat eral posterior tibial veins of the calf. Clot length is 13.3 cm. There is also superficial thrombop hlebitis at the greater saphenous vein mid calf level which is approximately 4 cm length. There is no evidence of DVT above the popliteal vein (knee level). Common femoral and femoral veins are patent. The greater saphenous vein in the thigh is patent. IMPRESSION: 1. Positive DVT study. There is thrombosis within the deep veins at and below the level of the left popliteal vein, extending from the popliteal vein down into the posterior tibial veins for a distanc e of approximately 13 cm. 2. There is also superficial thrombophlebitis in the mid level left calf greater saphenous vein, thi s clot length being 4 cm. DATA REPOSITORY:
[2024-09-07 11:35] VITALS: RESP 18
[2024-09-07 12:17] LABS: Abs Immature Grans 0.01 10^3/uL (0.0-0.06); Absolute Basophil Count 0.03 10^3/uL (0.0-0.2); Absolute Eosinophil Count 0.14 10^3/uL (0.0-0.7); Absolute Lymphocyte Count 1.16 10^3/uL (1.2-3.4); Absolute Monocyte Count 0.34 10^3/uL (0.1-0.8); Basophils % 0.7 %; Eosinophils % 3.3 %; HCT 38.1 % (36.0-46.0); HGB 12.8 g/dL (11.2-15.7); Immature Grans % 0.2 %; Lymphocytes % 27.8 %; MCHC 33.6 % (32.0-36.0); MCV 98 fL (80-95); Monocytes % 8.1 %; Neutrophils % 59.9 %; Platelet Count 265 10^3/uL (130-400); RBC 3.88 10^6/uL (3.93-5.22); RDW 12.3 % (11.7-14.6); RDW-SD 44.2 fL; WBC 4.18 10^3/uL (4.4-10.8)
[2024-09-07 12:26] LABS: Anion Gap 6.5 mmol/L (3-11); BUN 11 mg/dL (7-18); CO2 29.5 mmol/L (21.0-32.0); CREATININE 1.2 mg/dL (0.55-1.02); Calcium 9.2 mg/dL (8.5-10.1); Chloride 107 mmol/L (98-107); Glucose 133 mg/dL (74-106); Potassium 3.9 mmol/L (3.5-5.1); Sodium 143 mmol/L (136-145)
[2024-09-07 13:49] VITALS: BP 125/64; RESP 18; O2SAT 95
--- NOTE | 2024-09-07 13:50 | W.ED.GENAD ---
Discharge Plan Disposition Patient Disposition: Home Discharge Details Clinical Impression: Acute deep vein thrombosis (DVT) of left lower extremity Primary Care Provider: Tyra Garcia V ED Provider: Cesar Booth Home Meds and New Rx's Prescriptions: New apixaban 5 mg (74 tabs) tablets,dose pack 5 mg PO ONCE Qty: 74 0RF Rx Instructions: Please take 10 mg twice a day for 7 days and then 5 mg twice a day. Continued cholecalciferol (vitamin D3) 125 mcg (5,000 unit) capsule 125 mcg PO DAILY fluoxetine [Prozac] 20 MG capsule 30 mg PO DAILY levalbuterol tartrate [Xopenex HFA] 15 GM HFA aerosol inhaler 15 gm Inhalation PRN PRN losartan 25 mg tablet 50 mg PO DAILY metoprolol succinate 25 mg tablet extended release 24 hr 25 mg PO DAILY simethicone [Gas-X Extra Strength] 125 mg Tablet,Chewable 125 mg PO PRN PRN calcium carbonate [Tums] 200 mg calcium (500 mg) Tablet,Chewable 200 mg PO PRN PRN valacyclovir 1,000 MG tablet 1,000 mg PO DAILY Patient Comments: ran out a few days ago Discontinued ibuprofen 600 MG tablet 600 mg PO QID PRN PRNQty: 30 0RF Discharge Instructions Instructions: Deep Vein Thrombosis (DVT) ED Additional Instructions: You were seen in the emergency department for your calf pain. You are found to have a deep vein thrombosis??a DVT. Please take these medicines as directed. Please do not take ibuprofen while you are taking this anticoagulant. Please follow-up with your primary care provider next week. Please return to the emergency department if you develop shortness of breath if your left lower extremity becomes more swollen painful or turns blue. Discharge Data Discharge Date/Time-TO BE ENTERED AT DEPARTURE: 09/07/24 14:16 HPI General Date/Time Provider Initiated Documentation: 09/07/24 11:21. HPI Narrative: MDM This is an overall very well-appearing normothermic and not tachycardic 74-year-old female with prior history of DVTs now with left calf pain and duplex study consistent with DVT for which patient will receive updated prescription for apixaban. She does have hematology follow-up in 2 months at [facility]. She does not have any chest pain or any shortness of breath to suggest PE. No pain out of proportion to suggest necrotizing soft tissue infection. No changes of phlegmasia to suggest alba dolens nor cerulea dolens. No trauma to the left lower extremity to suggest increased risk for fracture and no bony tenderness I did not obtain x-rays. No significant erythema nor fevers to suggest septic joint. Negative Thomas test was not suspicious for Achilles tendon rupture so did not feel the patient required immobilization. Left foot warm well-perfused/not concern for critical limb ischemia. No significant erythema to suggest cellulitis. Patient and I discussed that she should return to emergency department if she develops worsening redness pain fevers or loss sensation in her foot. She understood her return indications it was discharged with empiric trial of expectant outpatient management. Chronic conditions affecting the care of the patient: Prior DVTs History obtained from an outside historian: N/A External record review: N/A Medications: Apixaban Social determinants of health affecting disposition: N/A Management discussed with: N/A Treatment/interventions considered: N/A Response to therapies provided: N/A HPI This is a 74-year-old female prior history of DVTs arrived to the emergency department via private vehicle in the setting of left leg pain. Patient reports that her symptoms began 2 days ago. She bent over and had sudden pain in her left calf. It was throbbing overnight in bed. She has been attempting treatment at home with hot packs. She notes that she is due to follow-up with oncology at [facility] in several months. She does not feel short of breath and is not having any chest pain. She is not currently on anticoagulation. No recent fevers no chills. Exam General: Well-appearing in no acute distress speaking in complete sentences. Head: Normocephalic, atraumatic. Eye: Extraocular eye movements intact. No conjunctival injection. No scleral icterus. Ear, nose, mouth, throat: Grossly normal inspection. Normal voice, handling secretions normally. Neck: Trachea midline. Cardiovascular: Well-perfused distal extremities. Respiratory: Nonlabored respiration. Gastrointestinal: Nondistended abdomen. Musculoskeletal: Left calf with mild tenderness. No palpable cords. Left foot warm well-perfused with 2+ PT and DP pulses on the left. 5 out of 5 left foot strength with dorsi and plantarflexion. Negative Thomas test. No significant erythema. No ecchymoses. Skin: Normal for age and race, grossly normal temperature and turgor. No acute rash. Neurologic: Alert and appropriate, no apparent acute deficits. Psychiatric: Mood and manner are appropriate. Grooming and personal hygiene are appropriate. Related Data Home Medications ?Medication ?Instructions ?Recorded ?Confirmed Prozac 20 mg capsule (fluoxetine) 30 mg PO DAILY 11/30/14 09/07/24 Xopenex HFA 45 mcg/actuation 15 gm inhalation PRN PRN 11/30/14 09/07/24 aerosol inhaler (levalbuterol tartrate) valacyclovir 1 gram tablet 1,000 mg PO DAILY 11/17/16 09/07/24 simethicone 125 mg chewable tablet 125 mg PO PRN PRN 11/25/19 09/07/24 (Gas-X Extra Strength) calcium carbonate (Tums) 200 mg PO PRN PRN 11/27/19 09/07/24 losartan 25 mg tablet 50 mg PO DAILY 08/05/23 09/07/24 metoprolol succinate 25 mg 25 mg PO DAILY 08/05/23 09/07/24 tablet,extended release 24 hr cholecalciferol (vitamin D3) 125 125 mcg PO DAILY 08/12/23 09/07/24 mcg (5,000 unit) capsule apixaban 5 mg (74 tabs) tablets in 5 mg PO ONCE #74 dose pk 09/07/24 a dose pack Previous Rx's ?Medication ?Instructions ?Recorded apixaban 5 mg (74 tabs) tablets in 5 mg PO ONCE #74 dose pk 09/07/24 a dose pack Allergies Allergy/AdvReac Type Severity Reaction Status Date / Time Sulfa (Sulfonamide Allergy Intermediate rash all Verified 09/07/24 12:34 Antibiotics) over, visual problems, bloated, turned red amitriptyline (From Elavil) AdvReac Severe Per pt. Verified 09/07/24 12:34 states she got aggressive in her sleep. atorvastatin AdvReac Severe pt. feels Verified 09/07/24 12:34 like she cant move bupropion (From Wellbutrin) AdvReac Severe Pt. states Verified 09/07/24 12:34 she got aggrressive ketoconazole (From Nizoral) AdvReac Severe severe Verified 09/07/24 12:34 burning rosuvastatin (From Crestor) AdvReac Severe pt feels Verified 09/07/24 12:34 like she can't move aspirin AdvReac Mild n/v/d and Verified 09/07/24 12:34 pain hydroxychloroquine sulfate AdvReac Mild GI Verified 09/07/24 12:34 (From Plaquenil) discomfort lovastatin AdvReac Mild pt feels Verified 09/07/24 12:34 like she can't move red yeast rice AdvReac Mild fatigue, Verified 09/07/24 12:34 felt like can't move General Stated Complaint: Vascular RODNEY: 3 Course Vital Signs Vital signs: Vital Signs Temperature 36.7 C 09/07/24 11:14 Pulse 72 09/07/24 11:14 Respiratory Rate 16 09/07/24 11:14 Blood Pressure 144/74 H 09/07/24 11:14 Pulse Oximetry 97 09/07/24 11:14 Temperature 36.7 C 09/07/24 11:14 Temperature Source Oral 09/07/24 11:14 Pulse 72 09/07/24 11:14 Respiratory Rate 18 09/07/24 11:35 Respiratory Effort Normal, Non-Labored 09/07/24 11:35 Respiratory Depth Normal 09/07/24 11:35 Respiratory Pattern Normal 09/07/24 11:35 Blood Pressure 144/74 H 09/07/24 11:14 Blood Pressure Position Sitting 09/07/24 11:14 Pulse Oximetry 97 09/07/24 11:14 Oxygen Delivery Method Room Air 09/07/24 11:14 Oxygen Flow Rate 0 09/07/24 11:14 Pain Level 4 09/07/24 11:35 Lab/Test Results Lab/Test Results: Laboratory Tests Range/Units 09/07/24 12:06 WBC (4.4-10.8) 10^3/uL 4.18 L RBC (3.93-5.22) 10^6/uL 3.88 L Hgb (11.2-15.7) g/dL 12.8 Hct (36.0-46.0) % 38.1 MCV (80-95) fL 98 H MCH (27.0-33.0) pg 33.0 MCHC (32.0-36.0) % 33.6 RDW (11.7-14.6) % 12.3 Plt Count (130-400) 10^3/uL 265 MPV (8.0-11.0) fL 9.0 Immature Gran % % 0.2 Neutrophils % % 59.9 Lymphocytes % % 27.8 Monocytes % % 8.1 Eosinophils % % 3.3 Basophils % % 0.7 Nucleated RBC % (0.0-0.3) % 0.0 Absolute Neutrophils (1.2-6.7) 10^3/uL 2.50 Absolute Lymphocytes (1.2-3.4) 10^3/uL 1.16 L Absolute Monocytes (0.1-0.8) 10^3/uL 0.34 Absolute Eosinophils (0.0-0.7) 10^3/uL 0.14 Absolute Basophils (0.0-0.2) 10^3/uL 0.03 Sodium (136-145) mmol/L 143 Potassium (3.5-5.1) mmol/L 3.9 Chloride (98-107) mmol/L 107 Carbon Dioxide (21.0-32.0) mmol/L 29.5 Anion Gap (3-11) mmol/L 6.5 BUN (7-18) mg/dL 11 Creatinine (0.55-1.02) mg/dL 1.2 H Est GFR (CKD-EPI 2020) (mL/min/1.73m2) 47.80 Glucose (74-106) mg/dL 133 H Calcium (8.5-10.1) mg/dL 9.2 Medical Decision Making Quality:SDOH Health Related Social Needs: No Data to Display PFSH All Active Problems (Updated 09/07/24 @ 13:52 by Cesar Booth MD) Acute deep vein thrombosis (DVT) of left lower extremity (Acute) Dysphagia (Acute) Shoulder pain, left (Acute) Diverticulosis (Acute) Colon polyps (Acute) Abdominal tenderness (Acute) Constipation (Acute) GERD (gastroesophageal reflux disease) (Chronic) Medical History Hypertension SANTANA (obstructive sleep apnea) Hematuria Cellulitis of arm, left History of DVT (deep vein thrombosis) Upper LEFT arm Numbness and tingling in left arm Hearing deficit History of compression fracture of spine Hx of constipation Allergic asthma Osteoporosis Oral herpes simplex infection Benign positional vertigo Polyarthralgia Hiatal hernia IBS (irritable bowel syndrome) Sicca syndrome Hyperlipidemia Depression Anxiety RAD (reactive airway disease) Pt. is unsure of this Diverticulosis Surgical History History of esophagogastroduodenoscopy biopsies taken Hx of tonsillectomy bladder suspencion Ligation of fallopian tube Oophrectomy, Left Colonoscopy - IV Sedation 2001 and 2009 Cholecystectomy Appendectomy Family History Mother Lung cancer Father Heart disease CHF and endocarditis Sister Thyroid cancer Brother , [place] at age 54. Myocardial infarction Social History Smoking/Tobacco Use Status: Former Tobacco Use Quit Date: 07/21/97 Smoking risk assessment performed?: Yes Alcohol Intake: current Alcohol Intake frequency: holidays/special occasions only Alcohol type: hard liquor Drug use: Never Substance use type: does not use Details: alcohol: sept, wine with dinner Housing: house Current gender identity: female Do you feel safe at home: Yes Do you feel safe in your relationship?: Yes
[2024-09-07] MEDS: Apixaban 5 MG TAB 10 MG PO (14:11)
[2024-09-07 14:15] VITALS: BP 132/90; PULSE 88; RESP 17; TEMP 36.8; O2SAT 99
== END 2024-09-07 14:16 | disposition home or self-care (01) ==
PROVIDERS: Emergency Provider Emergency Medicine; PCP Family Medicine
DX: I82.432 Acute embolism and thrombosis of left popliteal vein; I80.02 Phlebitis and thrombophlebitis of superficial vessels of left lower extremity; Z86.718 Personal history of other venous thrombosis and embolism; I10 Essential (primary) hypertension; Z79.899 Other long term (current) drug therapy
CPT/HCPCS: 36415; 80048; 99284; 85025; 93971

== ENCOUNTER 2025-03-09 00:48 | Outpatient (CLI) | payer MEDICARE, SELFPAY ==
--- NOTE | 2025-03-09 | DI.MAMMO_ITS ---
Exam(s) MG MAMMO SCREENING 60 MIN DUR EXAM: MG MAMMO SCREENING 60 MIN DUR CLINICAL HISTORY: SCREEN MAMMO Z12.31 S/P PARTIAL BREAST XRT TO RT BREAST LUMPECTOMY 06/29/24 TECHNIQUE: Mammograms were interpreted according to the usual protocol including computer analysis w ith CAD system, tomosynthesis and C-view imaging. COMPARISON: 2015 through 2023 FINDINGS: The breasts are composed of heterogeneously dense fibroglandular densities, Breast Density category C . No suspicious masses or suspicious microcalcifications are seen. Biopsy marker clips are now present in the upper outer quadrant of the right breast. Patient has undergone lumpectomy and radiation in April of 2024. There is mild scarring in this area. No skin thickening or abnormal axillary lymph nodes are seen. There has been no significant change in the left breast from prior exams. IMPRESSION: BI-RADS Category 2 - Negative Mammogram with benign findings. Yearly screening mammography is recomm ended. Breast Density Category C, heterogeneously Dense. Breast density Category C or D implies that the patient has dense breast tissue. Dense breast tissue can make it harder to find cancer on a mammogram. Dense breast tissue is also associated with an incr eased risk of breast cancer. This information about the result of the mammogram report was provided to the patient to raise their awareness. Use this report when you speak with the patient about their risks for breast cancer, which includes their family history. At that time, you may recommend additional screening tests (Ultrasoun d or MRI) as these tests may add significant information. A negative radiographic report should not delay biopsy if a dominant or clinically suspicious mass is present. Up to ten percent of cancers are not identified on mammography. A negative report may reinforce clinical impression. Adenosis and dense breasts may obscure an underlying neoplasm. False positive reports average 6 to 10%.
== END 2025-03-09 01:08 ==
LOC: DI 00:48
PROVIDERS: PCP Family Medicine; Visit Provider Radiology Radiation Oncology
DX: Z12.31 Encounter for screening mammogram for malignant neoplasm of breast (principal); R92.333 Mammographic heterogeneous density, bilateral breasts
CPT/HCPCS: 77063; 77067

== ENCOUNTER 2025-03-09 16:49 | Emergency (ER) | payer MEDICARE, SELFPAY ==
[2025-03-09 16:50] VITALS: BP 138/78; PULSE 71; RESP 16; TEMP 36.4; O2SAT 98
--- NOTE | 2025-03-09 17:30 | DI.RAD_ITS ---
Exam(s) XR ANKLE LT COMPLETE EXAM: XR ANKLE LT COMPLETE CLINICAL HISTORY: L ankle pain after fall (tripped in hole) TECHNIQUE: 2D digital imaging was performed of the left ankle. Three images were obtained. AP, lat eral and oblique views were obtained. COMPARISON: No exams were available for comparison FINDINGS: BONES: No acute fracture is present. No bony destructive lesion is seen. An enthesophyte at the poste rior calcaneus. JOINTS:The ankle mortise is normally aligned. SOFT TISSUE: Normal. IMPRESSION: No acute fracture or dislocation. DATA REPOSITORY: RADIATION DOSE DELIVERED:
--- NOTE | 2025-03-09 17:30 | DI.RAD_ITS ---
Exam(s) XR RIBS RT W PA LAT CHEST EXAM: XR RIBS RT W PA LAT CHEST CLINICAL HISTORY: R rib pain TECHNIQUE: 2D digital imaging was performed.Six images were obtained. COMPARISON: CR RIGHT SHOULDER COMPLETE from 11/17/2016 FINDINGS: MEDIASTINUM: Normal. HEART: Normal. PULMONARY VASCULATURE: Normal. LUNGS: Clear. PLEURAL SPACE: No pleural effusion or pneumothorax. BONE:Normal. RIGHT RIBS: Normal. OTHER FINDINGS:There are surgical clips seen in the soft tissues in the right axilla. There are surg ical clips in the right upper quadrant of the abdomen. IMPRESSION: 1. No acute pulmonary findings. 2. No displaced right rib fractures. DATA REPOSITORY: RADIATION DOSE DELIVERED:
--- NOTE | 2025-03-09 19:02 | ED.GENADUL_ITS ---
Discharge Plan Disposition Patient Disposition: Home Condition: Good Discharge Details Clinical Impression: Right-sided chest wall pain, Left ankle sprain Primary Care Provider: Tyra Garcia V ED Provider: Мария Bernstein Home Meds and New Rx's Prescriptions: No Action cholecalciferol (vitamin D3) 125 mcg (5,000 unit) capsule 125 mcg PO DAILY levalbuterol tartrate [Xopenex HFA] 15 GM HFA aerosol inhaler 15 gm Inhalation PRN PRN losartan 25 mg tablet 50 mg PO DAILY metoprolol succinate 25 mg tablet extended release 24 hr 25 mg PO DAILY fluoxetine [Prozac] 20 mg capsule 40 mg PO DAILY letrozole 2.5 mg tablet 2.5 mg PO DAILY valacyclovir 1 gram tablet 500 mg PO DAILY Patient Comments: ran out a few days ago magnesium oxide 300 mg magnesium tablet 300 mg PO DAILY simethicone [Gas-X Extra Strength] 125 mg Tablet,Chewable 125 mg PO PRN PRN calcium carbonate [Tums] 200 mg calcium (500 mg) Tablet,Chewable 200 mg PO PRN PRN apixaban 5 mg (74 tabs) tablets,dose pack 5 mg PO ONCE Qty: 74 0RF Rx Instructions: Please take 10 mg twice a day for 7 days and then 5 mg twice a day. Discharge Instructions Additional Instructions: Your chest x-ray and ankle x-ray were reassuring, no acute fractures noted. However you may have a hairline fracture of your rib that is not evident on x- ray. I recommend that you use Tylenol 650 mg every 8 hours as needed for discomfort. Apply lidocaine patches to your right chest wall; IcyHot and Salonpas make options. Be sure to do plenty of deep breathing to help prevent pneumonia; clutch a pillow to your chest to help support your chest wall Return to emergency care if you develop new chest pains, cough, difficulty breathing, foot numbness/color change, or if you are very worried and need to be rechecked again immediately HPI General Date/Time Provider Initiated Documentation: 03/09/25 17:37 . HPI Narrative: Cherelle is a 74-year-old female who presents to the emergency department today for evaluation of a fall. Accompanied by . Fell at 1400 hours today due to stepping into a hidden hole, fell onto the grass. Denies hitting any rocks or objects in the grass. Denies hitting her head suspects rib fracture due to cracking sound at the time of impact and pain during respiration, but no shortness of breath. No head injury, neck pain, headache, dizziness. Pain extends from the right anterior chest wall to the posterior chest wall. Known osteoporosis. She also report reports swollen and painful left from fall. Denies any distal numbness/tingling, castillo pain, knee pain, difficulty ambulating. Applied ice. Denies history of previous fracture in same ankle, no current pain. No castillo pain. Past medical history significant for osteoporosis and hypertension, well-managed with medication. Breast cancer survivor, surgery in 04/2024, mammogram earlier today. Related Data Home Medications ?Medication ?Instructions ?Recorded ?Confirmed Xopenex HFA 45 mcg/actuation 15 gm inhalation PRN PRN 11/30/14 03/09/25 aerosol inhaler (levalbuterol tartrate) simethicone 125 mg chewable tablet 125 mg PO PRN PRN 11/25/19 03/09/25 (Gas-X Extra Strength) calcium carbonate (Tums) 200 mg PO PRN PRN 11/27/19 03/09/25 losartan 25 mg tablet 50 mg PO DAILY 08/05/23 03/09/25 metoprolol succinate 25 mg 25 mg PO DAILY 08/05/23 03/09/25 tablet,extended release 24 hr cholecalciferol (vitamin D3) 125 125 mcg PO DAILY 08/12/23 03/09/25 mcg (5,000 unit) capsule apixaban 5 mg (74 tabs) tablets in 5 mg PO ONCE #74 dose pk 09/07/24 03/09/25 a dose pack Prozac 20 mg capsule (fluoxetine) 40 mg PO DAILY 10/09/24 03/09/25 letrozole 2.5 mg tablet 2.5 mg PO DAILY 10/09/24 03/09/25 magnesium oxide 300 mg PO DAILY 10/09/24 03/09/25 valacyclovir 1 gram tablet 500 mg PO DAILY 10/09/24 03/09/25 Previous Rx's ?Medication ?Instructions ?Recorded apixaban 5 mg (74 tabs) tablets in 5 mg PO ONCE #74 dose pk 09/07/24 a dose pack Allergies Allergy/AdvReac Type Severity Reaction Status Date / Time Sulfa (Sulfonamide Allergy Intermediate rash all Verified 09/07/24 12:34 Antibiotics) over, visual problems, bloated, turned red amitriptyline (From Elavil) AdvReac Severe Per pt. Verified 09/07/24 12:34 states she got aggressive in her sleep. atorvastatin AdvReac Severe pt. feels Verified 09/07/24 12:34 like she cant move bupropion (From Wellbutrin) AdvReac Severe Pt. states Verified 09/07/24 12:34 she got aggrressive ketoconazole (From Nizoral) AdvReac Severe severe Verified 09/07/24 12:34 burning rosuvastatin (From Crestor) AdvReac Severe pt feels Verified 09/07/24 12:34 like she can't move aspirin AdvReac Mild n/v/d and Verified 09/07/24 12:34 pain hydroxychloroquine sulfate AdvReac Mild GI Verified 09/07/24 12:34 (From Plaquenil) discomfort lovastatin AdvReac Mild pt feels Verified 09/07/24 12:34 like she can't move red yeast rice AdvReac Mild fatigue, Verified 09/07/24 12:34 felt like can't move General Stated Complaint: Orthopedic RODNEY: 4 Course Vital Signs Vital signs: Vital Signs Temperature 36.4 C 03/09/25 16:50 Pulse 71 03/09/25 16:50 Respiratory Rate 16 03/09/25 16:50 Blood Pressure 138/78 03/09/25 16:50 Pulse Oximetry 98 03/09/25 16:50 Temperature 36.4 C 03/09/25 16:50 Pulse 71 03/09/25 16:50 Respiratory Rate 16 03/09/25 16:50 Blood Pressure 138/78 03/09/25 16:50 Pulse Oximetry 98 03/09/25 16:50 Pain Level 8 03/09/25 16:50 Medical Decision Making Initial Assessment: 74-year-old female fell into a hole hidden by tall grass, heard a crack, possible rib fracture. Pain with breathing, no shortness of breath, headache, dizziness, or neck pain. Generalized pain and swelling in left ankle after fall. ED Course: - No chest wall ecchymosis, clear lung sounds bilaterally. -No red flags in history or physical exam concerning for head injury requiring diagnostic imaging - Rib x-ray shows no displaced right rib fractures or acute cardiopulmonary findings. - Ordered Tylenol if needed; lidocaine patches also offered - Mild tenderness to palpation of left medial ankle, no obvious swelling, ecchymosis, or deformity. - Left ankle x-ray shows no acute fracture or dislocation. Final Assessment: Fall-related injury with possible rib fracture and left ankle injury. Rib x-ray and left ankle x-ray show no acute fractures or dislocations. Tylenol ordered if needed. Clinical Impression: Overall workup today reassuring, no red flags concerning for significant intrathoracic or extremity injury. - Possible rib fracture; lidocaine patch provided and Tylenol. Reviewed discharge instructions, including pneumonia prevention. - Left ankle injury, likely sprain. Berry bandage provided. Disposition: - Discharge with PCP follow up MDM Components Evaluation: - Number of Differential Diagnoses or Management Options: Fall-related injury, possible rib fracture, left ankle injury. - Amount and Complexity of Data Reviewed: Rib x-ray, left ankle x-ray. - Risk of Complication and Morbidity or Mortality: Low risk based on imaging results and clinical presentation. Patient consented to the use of [facility] Imaging Data Radiologic Study: Radiologist's impression: Exam(s) XR RIBS RT W PA LAT CHEST EXAM: XR RIBS RT W PA LAT CHEST CLINICAL HISTORY: R rib pain TECHNIQUE: 2D digital imaging was performed.Six images were obtained. COMPARISON: CR RIGHT SHOULDER COMPLETE from 11/17/2016 FINDINGS: MEDIASTINUM: Normal. HEART: Normal. PULMONARY VASCULATURE: Normal. LUNGS: Clear. PLEURAL SPACE: No pleural effusion or pneumothorax. BONE:Normal. RIGHT RIBS: Normal. OTHER FINDINGS:There are surgical clips seen in the soft tissues in the right axilla. There are surgical clips in the right upper quadrant of the abdomen. IMPRESSION: 1. No acute pulmonary findings. 2. No displaced right rib fractures. Radiologic Study #2: Radiologist's impression: Exam(s) XR ANKLE LT COMPLETE EXAM: XR ANKLE LT COMPLETE CLINICAL HISTORY: L ankle pain after fall (tripped in hole) TECHNIQUE: 2D digital imaging was performed of the left ankle. Three images were obtained. AP, lateral and oblique views were obtained. COMPARISON: No exams were available for comparison FINDINGS: BONES: No acute fracture is present. No bony destructive lesion is seen. An enth esophyte at the posterior calcaneus. JOINTS:The ankle mortise is normally aligned. SOFT TISSUE: Normal. IMPRESSION: No acute fracture or dislocation. Quality:SDOH Health Related Social Needs: No Data to Display PFSH All Active Problems (Updated 03/09/25 @ 19:07 by Мария Persaud) Left ankle sprain (Acute) Right-sided chest wall pain (Acute) Dysphagia (Acute) Shoulder pain, left (Acute) Diverticulosis (Acute) Colon polyps (Acute) Abdominal tenderness (Acute) Constipation (Acute) GERD (gastroesophageal reflux disease) (Chronic) Medical History (Updated 03/09/25 @ 19:07 by Мария Persaud) Hx of radiation therapy Infiltrating ductal carcinoma of breast Thrombosis of left cephalic vein Hypertension SANTANA (obstructive sleep apnea) Hematuria Cellulitis of arm, left History of DVT (deep vein thrombosis) Upper LEFT arm Numbness and tingling in left arm Hearing deficit History of compression fracture of spine Hx of constipation Allergic asthma Osteoporosis Oral herpes simplex infection Benign positional vertigo Polyarthralgia Hiatal hernia IBS (irritable bowel syndrome) Sicca syndrome Hyperlipidemia Depression Anxiety RAD (reactive airway disease) Pt. is unsure of this Diverticulosis Surgical History (Updated 10/09/24 @ 10:41 by Tasha Stone RN) H/O lumpectomy right breast lumpectomy and radiation, and is now on letrazole History of esophagogastroduodenoscopy biopsies taken Hx of tonsillectomy bladder suspencion Ligation of fallopian tube Oophrectomy, Left Colonoscopy - IV Sedation 2001 and 2009 Cholecystectomy Appendectomy Family History Mother Lung cancer Father Heart disease CHF and endocarditis Sister Thyroid cancer Brother , [place] at age 54. Myocardial infarction Social History Smoking/Tobacco Use Status: Former Tobacco Use Quit Date: 07/21/97 Smoking risk assessment performed?: Yes Alcohol Intake: current Alcohol Intake frequency: holidays/special occasions only Alcohol type: hard liquor Drug use: Never Substance use type: does not use Details: alcohol: sept, wine with dinner Housing: house Current gender identity: female Do you feel safe at home: Yes Do you feel safe in your relationship?: Yes
[2025-03-09] MEDS: Lidocaine 5% Patch 1 PATCH TP (19:20)
== END 2025-03-09 19:20 | disposition home or self-care (01) ==
PROVIDERS: Emergency Provider Nurse Practitioner Family; PCP Family Medicine
DX: R07.89 Other chest pain; S93.401A Sprain of unspecified ligament of right ankle, initial encounter; I10 Essential (primary) hypertension; E78.5 Hyperlipidemia, unspecified; Z86.718 Personal history of other venous thrombosis and embolism; Z79.01 Long term (current) use of anticoagulants; Z87.891 Personal history of nicotine dependence; W01.0XXA Fall on same level from slipping, tripping and stumbling without subsequent striking against object, initial encounter; Y93.01 Activity, walking, marching and hiking; Y92.017 Garden or yard in single-family (private) house as the place of occurrence of the external cause
CPT/HCPCS: 99283; 71046; 71100; 73610

== ENCOUNTER 2025-03-15 14:05 | Emergency (ER) | payer MEDICARE, SELFPAY ==
[2025-03-15 14:22] VITALS: BP 123/76; PULSE 53; RESP 18; TEMP 36.4; O2SAT 96
--- NOTE | 2025-03-15 14:45 | DI.CT_ITS ---
Exam(s) CT CHEST WO EXAM: CT CHEST WO CLINICAL HISTORY: Fall saturday, R. ribs, worsening pain TECHNIQUE: Imaging Protocol: Axial computed tomography images with coronal and sagittal reformatted images were created and reviewed. Computer aided detection (CAD) was utilized. CONTRAST MATERIAL: Intravenous: Omnipaque 350 Contrast volume:structured data ml. COMPARISON: CR XR RIBS RT W PA LAT CHEST from 03/09/2025 FINDINGS: Pulmonary parenchyma: No consolidation. No dominant measurable mass. Scattered micro nodules. No follow-up recommended for low risk patients. Tracheobronchial tree: No bronchiectasis or mucous plugging. Mediastinum and Marli: No dominant adenopathy or fluid collection. Pleura: No effusion. No pneumothorax. Heart: The heart is not dilated. No coronary artery calcifications are seen. Aorta: Thoracic aorta non-dilated. Mild atherosclerotic changes. Pulmonary arteries: No gross evidence of emboli. Upper abdomen: No acute findings. Cholecystectomy. Bones: Degenerative changes in the spine. Soft tissues: Unremarkable. IMPRESSION: No acute abnormality. The preliminary [facility] report was reviewed. RADIATION DOSE DELIVERED: Total DLP DATA REPOSITORY: All CT scans at this facility are submitted to the National Radiology Data Registry (NRDR) Dose Index Registry (DIR) with the [employer] ([employer]). RADIATION OPTIMIZATION: All CT scans at this facility use at least one of these dose optimization te chniques: automated exposure control; mA and/or kV adjustment per patient size (includes targeted exa ms where dose is matched to clinical indication); or iterative reconstruction.
--- NOTE | 2025-03-15 14:50 | ED.GENADUL_ITS ---
Discharge Plan Disposition Patient Disposition: Home Condition: Stable Discharge Details Clinical Impression: Right-sided chest wall pain Primary Care Provider: Tyra Garcia V ED Provider: Irais Garcia Home Meds and New Rx's Prescriptions: No Action cholecalciferol (vitamin D3) 125 mcg (5,000 unit) capsule 125 mcg PO DAILY levalbuterol tartrate [Xopenex HFA] 15 GM HFA aerosol inhaler 15 gm Inhalation PRN PRN losartan 25 mg tablet 50 mg PO DAILY metoprolol succinate 25 mg tablet extended release 24 hr 25 mg PO DAILY fluoxetine [Prozac] 20 mg capsule 40 mg PO DAILY letrozole 2.5 mg tablet 2.5 mg PO DAILY valacyclovir 1 gram tablet 500 mg PO DAILY Patient Comments: ran out a few days ago magnesium oxide 300 mg magnesium tablet 300 mg PO DAILY simethicone [Gas-X Extra Strength] 125 mg Tablet,Chewable 125 mg PO PRN PRN calcium carbonate [Tums] 200 mg calcium (500 mg) Tablet,Chewable 200 mg PO PRN PRN apixaban 5 mg (74 tabs) tablets,dose pack 5 mg PO ONCE Qty: 74 0RF Rx Instructions: Please take 10 mg twice a day for 7 days and then 5 mg twice a day. Discharge Instructions Instructions: Bruised Rib (DC) Additional Instructions: You were seen in the emergency department today for evaluation of right sided rib pain. In our department you had a full physical examination performed, and had a CT that did not show any sign of broken or fractured bones, nor injury to the lung underneath. You likely bruised a rib and should continue to use your lidocaine patches. I recommend that you try your 650 mg of Tylenol every 4-6 hours for the next few days, and see if that is more effective at managing your pain. You can always increase that dose as needed to 1000 mg every 6 hours. Please do not take more than this amount. Please use ice as well as your incentive spirometer, and be sure to be taking deep breaths to allow your lungs to open up fully. Please follow-up with your primary care provider in the next few days to discuss this visit and any symptoms that change, worsen, or persist. Thank you for allowing us to be part of your care. HPI General Mode of arrival: ambulatory . Date/Time Provider Initiated Documentation: 03/15/25 14:11 . Limitations to Documentation: no limitations . Information obtained by: patient, family and old records reviewed . HPI Narrative: This is a 74-year-old female patient with a past medical history significant for GERD, anticoagulated on Eliquis, hypertension, and a fall on Saturday with a right sided chest wall strike, presenting for evaluation of acutely worsening right-sided chest wall pain. She states that over the last few days her symptoms have been stable, and she has been able to manage them with Lidoderm patches and Tylenol, last dose of medicines was several hours ago. She reports that she has not taken any new falls or injuries. States that she woke up this morning and her pain has been significantly worse today. She feels like her pain is worsened with deep breath and movement, she does not notice any specific location that is tender to palpation. She states she has been trying to do her deep breathing exercises, has not noted a fever or cough. She has not noted any other areas of her body that have had new or worsening pain. Related Data Home Medications ?Medication ?Instructions ?Recorded ?Confirmed Xopenex HFA 45 mcg/actuation 15 gm inhalation PRN PRN 11/30/14 03/15/25 aerosol inhaler (levalbuterol tartrate) simethicone 125 mg chewable tablet 125 mg PO PRN PRN 11/25/19 03/15/25 (Gas-X Extra Strength) calcium carbonate (Tums) 200 mg PO PRN PRN 11/27/19 03/15/25 losartan 25 mg tablet 50 mg PO DAILY 08/05/23 03/15/25 metoprolol succinate 25 mg 25 mg PO DAILY 08/05/23 03/15/25 tablet,extended release 24 hr cholecalciferol (vitamin D3) 125 125 mcg PO DAILY 08/12/23 03/15/25 mcg (5,000 unit) capsule apixaban 5 mg (74 tabs) tablets in 5 mg PO ONCE #74 dose pk 09/07/24 03/15/25 a dose pack Prozac 20 mg capsule (fluoxetine) 40 mg PO DAILY 10/09/24 03/15/25 letrozole 2.5 mg tablet 2.5 mg PO DAILY 10/09/24 03/15/25 magnesium oxide 300 mg PO DAILY 10/09/24 03/15/25 valacyclovir 1 gram tablet 500 mg PO DAILY 10/09/24 03/15/25 Previous Rx's ?Medication ?Instructions ?Recorded apixaban 5 mg (74 tabs) tablets in 5 mg PO ONCE #74 dose pk 09/07/24 a dose pack Allergies Allergy/AdvReac Type Severity Reaction Status Date / Time Sulfa (Sulfonamide Allergy Intermediate rash all Verified 03/15/25 14:32 Antibiotics) over, visual problems, bloated, turned red amitriptyline (From Elavil) AdvReac Severe Per pt. Verified 03/15/25 14:32 states she got aggressive in her sleep. atorvastatin AdvReac Severe pt. feels Verified 03/15/25 14:32 like she cant move bupropion (From Wellbutrin) AdvReac Severe Pt. states Verified 03/15/25 14:32 she got aggrressive ketoconazole (From Nizoral) AdvReac Severe severe Verified 03/15/25 14:32 burning rosuvastatin (From Crestor) AdvReac Severe pt feels Verified 03/15/25 14:32 like she can't move aspirin AdvReac Mild n/v/d and Verified 03/15/25 14:32 pain hydroxychloroquine sulfate AdvReac Mild GI Verified 03/15/25 14:32 (From Plaquenil) discomfort lovastatin AdvReac Mild pt feels Verified 03/15/25 14:32 like she can't move red yeast rice AdvReac Mild fatigue, Verified 03/15/25 14:32 felt like can't move General Stated Complaint: Recheck RODNEY: 3 Exam Narrative Exam Narrative: Gen: Awake and alert, in no apparent distress HEENT: Non-icteric sclera Neck: Supple Lungs: No apparent respiratory distress, normal respiratory effort. Lung sounds clear and equal bilaterally, breaths very slightly shallow CV: Appears well perfused, heart with regular rate and rhythm, no murmurs auscultated, strong distal pulses Abdomen: Non-distended MSK: Moves 4 extremities without apparent limitation in ROM. The patient's right chest wall is not tender to palpation, and I note no overlying skin changes or deformities. Pain is reproducible with deep breath and patient movement. No tenderness to palpation along the scapula or thoracic spine Skin: Visualized skin without rashes, cyanosis. Neuro: Normal Gait, no obvious focal deficits or facial asymmetry. Speaks in full, clear sentences. Psych: Appropriate for situation. Course Vital Signs Vital signs: Vital Signs Temperature 36.4 C 03/15/25 14:22 Pulse 53 L 03/15/25 14:22 Respiratory Rate 18 03/15/25 14:22 Blood Pressure 123/76 03/15/25 14:22 Pulse Oximetry 96 03/15/25 14:22 Temperature 36.4 C 03/15/25 14:22 Temperature Source Oral 03/15/25 14:22 Pulse 53 L 03/15/25 14:22 Respiratory Rate 18 03/15/25 14:22 Blood Pressure 123/76 03/15/25 14:22 Blood Pressure Position Sitting 03/15/25 14:22 Pulse Oximetry 96 03/15/25 14:22 Pain Level 10 03/15/25 14:22 Medical Decision Making This is a 74-year-old female patient presenting for evaluation of right-sided rib pain. Differential includes but is not limited to right-sided rib fractures, rib contusion, pulmonary contusion, certainly considered the development of pneumonia despite the lack of fever given the worsening of symptoms several days after a rib injury. The patient has no tachycardia or tachypnea to significantly increase my concern for pulmonary embolism, and she is reassuringly anticoagulated. Considered pneumothorax, pleural effusion. No wheezing to suggest reactive airway disease exacerbation. I will provide the patient with a dose of Tylenol for initial pain management. Will hold on NSAIDs given her apixaban use. We will obtain a CT of the chest without contrast to evaluate the bones and underlying lung parenchyma. - CT scan obtained, showing no rib fractures, pulmonary contusions or consolidations that would be concerning for pneumonia, or other abnormality to account for her symptoms. Incidental note made of very small nodules, patient was informed of this finding, and given her history of nicotine use was recommended to follow-up with her PCP, who may repeat CT imaging in 1 year to evaluate for progression. On reassessment the patient reports that she is feeling much improved. She was able to pull 1700 mL on incentive spirometry. I recommended increasing her Tylenol use from once per day to 650 mg every 4-6 hours as needed for pain, and to follow-up with her primary care for reassessment in the next few days. She will continue to use good pulmonary hygiene, ice, and lidocaine patches. My DC wrap-up Quality:SDOH Health Related Social Needs: No Data to Display PFSH All Active Problems (Updated 03/15/25 @ 16:18 by Irais Garcia MD) Left ankle sprain (Acute) Right-sided chest wall pain (Acute) Dysphagia (Acute) Shoulder pain, left (Acute) Diverticulosis (Acute) Colon polyps (Acute) Abdominal tenderness (Acute) Constipation (Acute) GERD (gastroesophageal reflux disease) (Chronic) Medical History (Updated 03/15/25 @ 16:18 by Irais Garcia MD) Hx of radiation therapy Infiltrating ductal carcinoma of breast Thrombosis of left cephalic vein Hypertension SANTANA (obstructive sleep apnea) Hematuria Cellulitis of arm, left History of DVT (deep vein thrombosis) Upper LEFT arm Numbness and tingling in left arm Hearing deficit History of compression fracture of spine Hx of constipation Allergic asthma Osteoporosis Oral herpes simplex infection Benign positional vertigo Polyarthralgia Hiatal hernia IBS (irritable bowel syndrome) Sicca syndrome Hyperlipidemia Depression Anxiety RAD (reactive airway disease) Pt. is unsure of this Diverticulosis Surgical History (Updated 10/09/24 @ 10:41 by Tasha Stone RN) H/O lumpectomy right breast lumpectomy and radiation, and is now on letrazole History of esophagogastroduodenoscopy biopsies taken Hx of tonsillectomy bladder suspencion Ligation of fallopian tube Oophrectomy, Left Colonoscopy - IV Sedation 2001 and 2009 Cholecystectomy Appendectomy Family History Mother Lung cancer Father Heart disease CHF and endocarditis Sister Thyroid cancer Brother , [place] at age 54. Myocardial infarction Social History Smoking/Tobacco Use Status: Former Tobacco Use Quit Date: 07/21/97 Smoking risk assessment performed?: Yes Alcohol Intake: former Drug use: Never Substance use type: does not use Details: alcohol: sept, wine with dinner Housing: house Current gender identity: female Do you feel safe at home: Yes Do you feel safe in your relationship?: Yes
[2025-03-15] MEDS: Acetaminophen 500 MG TAB 1000 MG PO (15:00)
--- NOTE | 2025-03-15 16:02 | DI.VRAD_ITS ---
PROCEDURE INFORMATION: Exam: CT Chest Without Contrast; Diagnostic Exam date and time: 03/15/2025 3:22 PM Age: 74 years old Clinical indication: Right-sided and other: Fall Satnes, R. Ribs, worsening pain TECHNIQUE: Imaging protocol: Diagnostic computed tomography of the chest without contrast. 3D rendering (Not supervised by radiologist): MIP and/or 3D reconstructed images were created by the technologist. COMPARISON: CR XR RIBS RT W PA LAT CHEST 03/09/2025 6:30 PM FINDINGS: Lungs: Multiple sub 3 mm pulmonary nodules. No airspace disease or lung consolidation. No pulmonary contusion. Pleural spaces: Unremarkable. No pneumothorax. No pleural effusion. Heart: Unremarkable. No cardiomegaly. No pericardial effusion. Coronary arteries: No calcified coronary artery disease. Lymph nodes: Unremarkable. No enlarged lymph nodes. Vasculature: Unremarkable. No aortic aneurysm. Gallbladder and biliary ducts: Cholecystectomy. Bones/joints: No thoracic spine compression deformities. No conspicuous rib fractures. Soft tissues: No soft tissue hematoma. IMPRESSION: 1. No acute findings. 2. Micro nodules.For patients at low risk (minimal or absent history of smoking and of other known risk factors), no routine follow-up is indicated. For patients at high risk (history of smoking or of other known risk factors), consider optional CT Chest at 12 months. (Reference: Jefferson) REFERENCES: [facility] Cooper, et al. Guidelines for Management of Incidental Pulmonary Nodules Detected on CT Images: From the Fleischner Society 2017. Radiology. 2017;284(1):228-243. Dictated and Authenticated by: Naveen Walter MD. Orderin [facility] Braxton MD
[2025-03-15 16:23] VITALS: BP 135/63; PULSE 52; RESP 16; TEMP 36.8; O2SAT 97
== END 2025-03-15 16:35 | disposition home or self-care (01) ==
PROVIDERS: Emergency Provider Emergency Medicine; PCP Family Medicine
DX: R07.89 Other chest pain; R91.1 Solitary pulmonary nodule
CPT/HCPCS: 99283; 99285; 71250

== ENCOUNTER 2025-07-29 00:39 | Outpatient (RCR) | payer MEDICARE, SELFPAY ==
[2025-07-29] MEDS: Normal Saline Flush 10 ML SYR IVP (10:52)
== END 2025-08-20 23:59 | disposition home or self-care (01) ==
LOC: INF 00:39
PROVIDERS: PCP Family Medicine; Visit Provider Family Medicine
DX: M81.0 Age-related osteoporosis without current pathological fracture (principal)
CPT/HCPCS: 96365; J3489

== ENCOUNTER 2025-08-05 05:47 | Outpatient (CLI) | payer MEDICARE, SELFPAY ==
--- NOTE | 2025-08-05 | DI.CT_ITS ---
Exam(s) CT CHEST W EXAM: CT CHEST W CLINICAL HISTORY: R91.8,Z85.3 Multiple lung nodules, HX breast CA TECHNIQUE: Imaging Protocol: Axial computed tomography images with coronal and sagittal reformatted images were created and reviewed. Computer aided detection (CAD) was utilized. CONTRAST MATERIAL: Intravenous: Omnipaque 350Contrast volume:70 mL. COMPARISON: CT RENAL COLIC WO CONTRAST from 01/07/[address] CHEST WO from 03/15/2025 FINDINGS: Tracheobronchial tree: Patent where visualized. No evidence of bronchiectasis. Pulmonary parenchyma: There is a stable 3 mm nodule in the lateral aspect of the right lower lobe (series 8, image 100). The nodule in the left lung apex measures 6 mm compared to 3 mm on the prior examination (series 8, image 21). There is an unchanged 3 mm nodule in the left upper lobe (series 8, image 42). There is a stable 3 mm nodule in the left upper lobe (series 8, image 31). There are no new pulmonary nodules. There are no focal consolidating infiltrates present. Mediastinum and Marli: No dominant adenopathy or fluid collection. The esophagus is unremarkable. Thyroid gland: Unremarkable. Pleura: No effusion or pneumothorax. Heart: The heart is not dilated. No coronary artery calcifications are seen. No pericardial effusion. Aorta: Thoracic aorta non-dilated. There is no evidence of dissection. Atherosclerotic calcification is present. Pulmonary arteries: No pulmonary emboli are identified. Upper abdomen: There is no acute abnormality. The patient is status post cholecystectomy. There is a duodenal diverticulum adjacent to the head of the pancreas. Lymph nodes: Within normal limits. Bones: Within normal limits for the patient's age. Soft tissues: Status post lumpectomy in the right breast. IMPRESSION: 1. Slight increase in size of the left apical pulmonary nodule. Otherwise, the nodules are stable. There are no new pulmonary nodules. 2. There is no acute pulmonary process. RADIATION DOSE DELIVERED: Total DLP DATA REPOSITORY: All CT scans at this facility are submitted to the National Radiology Data Registry (NRDR) Dose Index Registry (DIR) with the [employer] ([employer]). RADIATION OPTIMIZATION: All CT scans at this facility use at least one of these dose optimization techniques: automated exposure control; mA and/or kV adjustment per patient size (includes targeted exams where dose is matched to clinical indication); or iterative reconstruction.
[2025-08-05 14:04] LABS: ALT 20 U/L (14-59); AST 15 U/L (15-37); Albumin 3.7 g/dL (3.4-5.0); Alkaline Phosphatase 86 U/L (46-116); Anion Gap 9.3 mmol/L (3-11); BUN 12 mg/dL (7-18); Bilirubin, Total 0.3 mg/dL (0.2-1.0); CO2 25.7 mmol/L (21.0-32.0); Calcium 9.1 mg/dL (8.5-10.1); Chloride 103 mmol/L (98-107); Estimated GFR 52.73 (mL/min/1.73m2); Glucose 92 mg/dL (74-106); Potassium 3.9 mmol/L (3.5-5.1); Sodium 138 mmol/L (136-145); Total Protein 7.3 g/dL (6.4-8.2)
[2025-08-05] MEDS: Omnipaque 350 MG/ML 100 ML BTL IJ (14:23)
[2025-08-05] MEDS: Normal Saline Flush 10 ML SYR IVP (14:23)
[2025-08-05] MEDS: Normal Saline - Diluent 50 ML VIAL IJ (14:23)
== END 2025-08-05 06:07 ==
PROVIDERS: PCP Family Medicine; Visit Provider Nurse Practitioner Family
DX: Z85.3 Personal history of malignant neoplasm of breast (principal); R91.8 Other nonspecific abnormal finding of lung field; R91.1 Solitary pulmonary nodule
CPT/HCPCS: 80053; 71260; J3490

== ENCOUNTER 2025-08-20 09:46 | Day surgery (SDC) | payer MEDICARE, SELFPAY ==
--- NOTE | 2025-08-19 18:41 | PDOC.DSDIS_ITS ---
Date of service: 08/20/25 Discharge Plan Disposition Patient Disposition: Home Condition: Good Discharge Details Reason For Visit: screening colonoscopy Attending Provider: John Umaña Primary Care Provider: Tyra Garcia V Home Meds and New Rx's Prescriptions: Continued cholecalciferol (vitamin D3) 125 mcg (5,000 unit) capsule 125 mcg PO DAILY levalbuterol tartrate [Xopenex HFA] 15 GM HFA aerosol inhaler 15 gm Inhalation PRN PRN losartan 25 mg tablet 50 mg PO DAILY metoprolol succinate 25 mg tablet extended release 24 hr 25 mg PO HS fluoxetine [Prozac] 20 mg capsule 40 mg PO DAILY valacyclovir 1 gram tablet 500 mg PO DAILY Patient Comments: ran out a few days ago magnesium oxide 300 mg magnesium tablet 300 mg PO DAILY famotidine 40 mg tablet 40 mg PO DAILY PRN fluoxetine 20 mg capsule 20 mg PO DAILY fluoxetine 10 mg capsule 10 mg PO DAILY simethicone [Gas-X Extra Strength] 125 mg Tablet,Chewable 125 mg PO PRN PRN calcium carbonate [Tums] 200 mg calcium (500 mg) Tablet,Chewable 200 mg PO PRN PRN anastrozole 1 mg tablet 1 mg PO DAILY Held apixaban 5 mg (74 tabs) tablets,dose pack 5 mg PO ONCE Qty: 74 0RF Hold Instructions: Resume on 08/21/25. Rx Instructions: Please take 10 mg twice a day for 7 days and then 5 mg twice a day. Discontinued polyethylene glycol 3350 17 gram/dose powder 17 g PO ONCE Qty: 238 0RF Rx Instructions: Take per colonoscopy instructions provided by ordering providers office bisacodyl [Dulcolax (bisacodyl)] 5 mg tablet,delayed release (DR/EC) 5 mg PO ONCE Qty: 8 0RF Rx Instructions: Take per colonoscopy instructions provided by ordering providers office Discharge Instructions Instructions: Colon polyps, Diverticulosis Additional Instructions: Cherelle, was a pleasure meeting you today, and hope you are comfortable through the procedure. Things went very smoothly. I did find, and removed, 4 polyps today. These will be sent to the pathologist for them to review. Once I know that information, my office will be in touch with recommendations for future colonoscopies. Because of the polypectomies performed today, I did like you to hold your apixaban until tomorrow. You can resume it at that point as you re gularly take it. If you need anything or have any questions at all, please do not hesitate to call, otherwise we will be in touch once the pathology report is available. 1. If tolerated, consume a soft, low fiber diet for 1-2 days. 2[address] Do not drive, drink alcohol, operate machinery, make critical decisions, or do activities that require coordination or balance for 24 hours. 3. Because air was put into your colon during the procedure, expelling air from your rectum (passing gas or farting) is normal. 4. You may not have a bowel movement for 1-3 days because of the colonoscopy prep. This is normal. 5. Go directly to the emergency room if you notice any of the following: Develop chills (warm to touch), or if you have a thermometer and your temperature is above 101 Difficulty breathing or difficultly swallowing Persistent vomiting Severe abdominal pain, other than gas cramps Severe chest pain Black, tarry stools Any bleeding – exceeding one tablespoon 6. Call your physician if the site where your intravenous was started becomes red, swollen, painful, and warm to touch. 7. Your physician has reviewed your pre-procedure medications. Please continue to take those medications as previously ordered. You will be given specific information/education regarding any changes to your medications before leaving. Stand Alone Forms: Anesthesia Discharge InstMayda Prasad (DSU) Activity:: Activity as Tolerated Diet:: As Tolerated Discharge Orders Discharge Orders: Discharge Order (Routine); Ordered 08/19/25 Ordered By: John Umaña DS: Diagnosis Discharge Diagnosis (1) Encounter for screening colonoscopy: Status: Acute Asessment and Plan: Follow-up on polypectomy results
--- NOTE | 2025-08-19 18:44 | W.COLOREPORT ---
Date of service: 08/20/25 Time of Service: 13:00 Colonoscopy Report Date of procedure: 08/20/25 Pre-op diagnosis general: screening colonoscopy Post-op diagnosis procedure note: other (Diverticulosis, colon polyps) Procedure: colonoscopy with polypectomy Surgeon: John Umaña Anesthesia Type: General:No Airway Estimated blood loss (mL): 5 Pathology: other (0.25 cm flat polyp in the ascending colon, 0.25 cm flat polyp at 75 cm, 0.25 cm flat polyp at 50 cm, 0.25 cm flat polyp at 25 cm) Complications: None Disposition: same day Indications: Cherelle is a 75 year old woman with a history of adenomatous polyps who needs her next screening colonoscopy Prep: Miralax/Dulcolax Procedure Start Time: 12:25 Procedure End Time: 12:47 Retraction Time: 12 Findings: Pandiverticulosis; 0.25 cm flat polyp in the ascending colon, 0.25 cm flat polyp at 75 cm, 0.25 cm flat polyp at 50 cm, 0.25 cm flat polyp at 25 cm Procedure Description: After the induction of anesthesia, and with the patient in left lateral decubitus position, I began by performing an external anorectal exam. Perineum and skin were normal, as was the anal verge. There was no evidence of external hemorrhoids. Next, I performed a digital rectal exam. This was normal. Next, I advanced a colonoscope into the rectal vault. I performed retroflexion. This appeared normal. Using irrigation, I then advanced the colonoscope beyond the rectal folds and into the sigmoid colon before advancing towards the cecum. There is diverticulosis involving all segments of the colon, but is most heavily concentrated in the sigmoid. The scope was noted to be in the cecum by identification of the ileocecal valve and appendiceal orifice. I then began withdrawing the colonoscope using repeated irrigation as necessary for full evaluation of the colonic mucosa. In the ascending colon, there was a 0.25 cm flat polyp. This was removed with cold forceps with minimal bleeding. Similarly, flat polyps were found at 75 cm, 50 cm, and 25 cm. All were less than 0.25 cm. All of these were removed with cold forceps without any problems. Once the scope was withdrawn to the level of the rectum, great care was taken to examine portions of the rectal folds. Finally, the scope was withdrawn and the patient was brought to the same-day surgery recovery unit as the anesthetic wore off. The findings and instructions were shared with the patient prior to discharge. [place] Bowel Prep [place] Bowel Prep Right Colon: 3 Left Colon: 3 Transverse Colon: 3 Total Score: 9
[2025-08-20 10:17] VITALS: BP 140/56; PULSE 57; RESP 16; TEMP 36.4; O2SAT 95
[2025-08-20] MEDS: Lactated Ringers 1,000 ML 80 ML IV (10:31)
--- NOTE | 2025-08-20 11:34 | ANES.PREOP_ITS ---
General Info Date of Service Date Performed: 08/20/25 Height: 5 ft 3.5 in Weight: 83.8 kg Body Mass Index (BMI): 32.2 Surgical Procedure: Operation Date: 08/20/25 11:20 Proposed Procedure Side Surgeon gill Umaña MD Meds Allergies and Home Medications Allergies Allergy/AdvReac Type Severity Reaction Status Date / Time Sulfa (Sulfonamide Allergy Intermediate rash all Verified 08/20/25 10:25 Antibiotics) over, visual problems, bloated, turned red amitriptyline (From Elavil) AdvReac Severe Per pt. Verified 08/20/25 10:25 states she got aggressive in her sleep. atorvastatin AdvReac Severe pt. feels Verified 08/20/25 10:25 like she cant move bupropion (From Wellbutrin) AdvReac Severe Pt. states Verified 08/20/25 10:25 she got aggrressive ketoconazole (From Nizoral) AdvReac Severe severe Verified 08/20/25 10:25 burning rosuvastatin (From Crestor) AdvReac Severe pt feels Verified 08/20/25 10:25 like she can't move aspirin AdvReac Mild n/v/d and Verified 08/20/25 10:25 pain hydroxychloroquine sulfate AdvReac Mild GI Verified 08/20/25 10:25 (From Plaquenil) discomfort lovastatin AdvReac Mild pt feels Verified 08/20/25 10:25 like she can't move red yeast rice AdvReac Mild fatigue, Verified 08/20/25 10:25 felt like can't move Home Medication Medication Instructions Recorded Xopenex HFA 45 mcg/actuation 15 gm inhalation PRN PRN 11/30/14 aerosol inhaler (levalbuterol tartrate) simethicone 125 mg chewable tablet 125 mg PO PRN PRN 0 11/25/19 (Gas-X Extra Strength) calcium carbonate (Tums) 200 mg PO PRN PRN 11/27/19 losartan 25 mg tablet 50 mg PO DAILY 08/05/23 metoprolol succinate 25 mg 25 mg PO HS 08/05/23 tablet,extended release 24 hr cholecalciferol (vitamin D3) 125 125 mcg PO DAILY 07/22 01/10 mcg (5,000 unit) capsule apixaban 5 mg (74 tabs) tablets in 5 mg PO ONCE #74 do se pk 09/07/24 a dose pack Prozac 20 mg capsule (fluoxetine) 40 mg PO DAILY 10/09 Held on 08/20/25. Instructions: Changed by Provider magnesium oxide 300 mg PO DAILY 10/09/24 valacyclovir 1 gram tablet 500 mg PO DAILY 10/09/24 famotidine 40 mg tablet 40 mg PO DAILY PRN 03/29/25 fluoxetine 10 mg capsule 10 mg PO DAILY 03/29/25 fluoxetine 20 mg capsule 20 mg PO DAILY 03/29/25 anastrozole 1 mg tablet 1 mg PO DAILY 08/18/25 Current Visit Medications: Current Medications Generic Name Dose Route Start Last Admin Trade Name Freq PRN Reason Stop Dose Admin Ringer's Solution 1,000 mls @ 80 mls/hr 08/20/25 06:00 08/20/25 10:31 IV 08/20/25 23:59 80 mls/hr INFUSION TRICIA Administration IV Miscellaneous Supplies 1 each 08/20/25 06:00 Iv Access IV 08/20/25 23:59 DIRECTED TRICIA Sodium Chloride 0 ml 08/20/25 06:00 Normal Saline Flush 10 Ml Syr IV 08/20/25 23:59 PRN PRN Sodium Chloride 0 ml 08/20/25 06:00 Normal Saline 10 Ml Vial IJ 08/20/25 23:59 DIRECTED PRN Sterile Water 0 ml 08/20/25 06:00 Water,Injection,Sterile 10 Ml Vial IJ 08/20/25 23:59 DIRECTED PRN PFSH Active Problems Active Problems: Problem Status Onset Code Encounter for screening colonoscopy Acute Z12.11 Dysphagia Acute R13.10 Shoulder pain, left Acute M25.512 Diverticulosis Acute K57.90 Colon polyps Acute K63.5 Abdominal tenderness Acute R10.819 Constipation Acute K59.00 GERD (gastroesophageal reflux disease) Chronic Medical History Medical History Mass of right breast Cephalic vein thrombosis Hx of radiation therapy Infiltrating ductal carcinoma of breast Thrombosis of left cephalic vein Hypertension SANTANA (obstructive sleep apnea) Hematuria Cellulitis of arm, left History of DVT (deep vein thrombosis) Upper LEFT arm Numbness and tingling in left arm Hearing deficit History of compression fracture of spine Hx of constipation Allergic asthma Osteoporosis Oral herpes simplex infection Benign positional vertigo Polyarthralgia Hiatal hernia IBS (irritable bowel syndrome) Sicca syndrome Hyperlipidemia Depression Anxiety RAD (reactive airway disease) Pt. is unsure of this Diverticulosis Surgical History Surgical History H/O lumpectomy right breast lumpectomy and radiation, and is now on letrazole History of esophagogastroduodenoscopy biopsies taken Hx of tonsillectomy bladder suspencion Ligation of fallopian tube Oophrectomy, Left Colonoscopy - IV Sedation 2001 and 2009 Cholecystectomy Appendectomy Tobacco Smoking/Tobacco Use Status: Former Tobacco Use Passive smoking exposure: Yes Alcohol Alcohol Intake: former Substance Use Substance use: Never Substance use type: does not use Details: alcohol: sept, wine with dinner Vital Signs and Lab Results Vital Signs Most Recent Vital Signs in EMR: Most Recent Vital Signs Temp Pulse Resp BP Pulse Ox 36.4 C L 57 L 16 140/56 L 95 08/20/25 10:17 08/20/25 10:17 08/20/25 10:17 08/20/25 10:17 08/20/25 10:17 Lab Results Complete Metabolic Panel: Sodium, (136-145) 138 mmol/L 08/05/25, 13:38 Potassium, (3.5-5.1) 3.9 mmol/L 08/05/25, 13:38 Chloride, (98-107) 103 mmol/L 08/05/25, 13:38 Carbon Dioxide, (21.0-32.0) 25.7 mmol/L 08/05/25, 13 :38 BUN, (7-18) 12 mg/dL 08/05/25, 13:38 Creatinine, (0.55-1.02) 1.1 mg/dL H 08/05/25, 13:38 Est GFR (CKD-EPI 2020), (mL/min/1.73m2) 52.73 08/05/25, 13:38 Calcium, (8.5-10.1) 9.1 mg/dL 08/05/25, 13:38 Albumin, (3.4-5.0) 3.7 g/dL 08/05/25, 13:38 Glucose, (74-106) 92 mg/dL 08/05/25, 13:38 Liver Function Panel: ALT, (14-59) 20 U/L 08/05/25, 13:38 AST, (15-37) 15 U/L 08/05/25, 13:38 Imaging and Studies Imaging and Studies Study information below may be from another EMR and interpreted by another provider. Please see original notes in EMR for more complete details. Stress Test Summary: Patient Name: WENDY ARANA Unit #: [id number] Loc: DI Ordering Provider: Tyra Garcia M.D. Status: REG CLI Primary Care Provider: Tyra Garcia M.D. Date of Exam: 06/23/20 Sex: F Admission Date: 06/23/20 : 1950 Age: 70 Exam(s) a NM:NM MPI rest & stress grp APPROVED REPORT Exam: Exercise Treadmill Patient Location: Out-Patient Room/Bed: Stress Nurse: Leticia Alvarenga RN BMI: 0 Baseline Rhythm: Sinus Rhythm Comment: Left [place] Deviation Indications: For the past several months patient reports left sided chest ???heaviness??? with walking and activity. Medical History Medical History: GERD, Depression, Anxiety. Cardiac Medications: Metoprolol Succinate, Aspirin. Allergies: Crestor, Atorvastatin, Nizoral, Sulfa, Lovastatin, Plaquenil, Mold, Dust, Red Yeast Rice. Cardiac Risk Factors: FHX of CAD, HTN, Hyperlipidemia, Asthma Previous Cardiac Procedures: None Pretest Chest Pain Characteristics: None Exercise History: Physically active Physical Disabilities: None Lung Sounds: Clear to auscultation Heart Sounds: Regular Stress Test Details Test: Exercise stress testing was performed using a Sal protocol. Nuclear Acquisition: Rest Tc-99m/Stress Tc-99m 1 day Rest Isotope: Tc-99m Sestamibi. Dose: 9.8 Date: 06/23/2020 Injection Time: 0930 Stress Isotope: Tc-99m Sestamibi. Dose: 31.0 Date: 06/23/2020 Injection Time: 1125 HR Resting HR Supine: 64 bpmMax Heart Rate (APMHR): 151 bpm Resting HR Standin bpmTarget HR (85% APMHR): 128 bpm Max HR Achieved: 140 bpm % of APMHR: 92 HR response to stress: Normal HR response to stress BP Resting BP Supine: 150/90 mmHg Resting BP Standin/90 mmHg Max BP: 182/72 mmHg BP response to stress: Normal blood pressure response to stress. ECG Resting ECG: Sinus Rhythm Stress ECG: No significant St segment changes noted. Clinical Reason for Termination: Fatigue Stress Symptoms: None reported per patient. Exercise duration: 8 min15 sec Highest Stage Reached: Stage 3: 3.4 mph at 14% grade. Exercise capacity: 10.16 METs Functional Capacity: Above average capacity Stress ECG Conclusion 1. Resting electrocardiogram was normal 2. The patient exercised on the Sal protocol and completed a workload of 10.16 METs, 8 minutes and 15 seconds. 3. Normal heart rate and blood pressure response to exercise. The patient achieved 92% of predicted heart rate for age 4. There were no symptoms to suggest angina 5. Electrocardiographically the test was negative for myocardial ischemia 6. There were no dysrhythmias 7. Heller treadmill score is 8, low risk Stress Test Summary STAGETime (mins)Speed (mph)Grade (%)HRBPSYMPTOMSMETS Ofnvvh06699/90 Shdexidq31203/90 131.89336311/764.6 [id number]/687 1 min vbjzbcsg752884/66 3 min sjrpwvwb38121/72 6 min ppyqwjln82128/82 MPI Conclusion Normal myocardial perfusion without evidence of ischemia or prior infarction EF 71% Radiologist Interpretation Radiologist agrees with Recreation Therapy Aide's Interpretation. Radiologist Interpretation by: Kenroy Machado MD Interpretation Date/Time: 07/04/2020 14:47:03 Ordered By: Tyra Garcia M.D. CC: NEAL FLORES MD Dictated By: Neal Flores M.D. 06/23/20 1143 <Electronically signed by Neal Flores M.D. in OV> 07/05/20 0912 Transcribed By: Neal Flores MD This is privileged, confidential information intended only for the provider named. Any use or distribution by any person other than this provider is strictly prohibited. If you receive this report in error, please notify us immediately at [phone] and return the original report to us at the address above. Thank-you. Echocardiogram Summary: Patient Name: WENDY ARANA Unit #: [id number] Loc: DI Ordering Provider: Tyra Garcia M.D. Status: REG CLI Primary Care Provider: Tyra Garcia M.D. Date of Exam: 01/25/21 Sex: F Admission Date: 01/25/21 : 1950 Age: 70 Exam(s) a US:US echocardiogram APPROVED REPORT EXAM: Comprehensive 2D, Doppler, and color-flow Echocardiogram Patient Location: Out-Patient Tableau Report Developer: Kaleigh Swartz RDCS (AE) Indications: Chest pain, Dyspnea on exertion, Murmur Other Information Study Quality: Good Conclusion Left Ventricle : The left ventricle is normal size. The left ventricular systolic function is normal. The left ventricular ejection fraction is within the normal range. There is normal left ventricular wall thickness. There is normal LV segmental wall motion. The left ventricular diastolic function is normal. LVEF is 65%. Right Ventricle : The right ventricle is normal size. The right ventricular systolic function is normal. The RVSP is 30.4 mmHg. Atria : The left atrium size is normal. The right atrium size is normal. Valves: There are no hemodynamically significant valvular lesions. Great Vessels : The aortic root is normal in size. The ascending aorta is normal in size. Aortic arch is normal in caliber. IVC is normal in size and collapses >50% with inspiration. Please see remainder of study for further details. Wall motion Left Ventricle The left ventricle is normal size. The left ventricular systolic function is normal. The left ventricular ejection fraction is within the normal range. There is normal left ventricular wall thickness. There is normal LV segmental wall motion. The left ventricular diastolic function is normal. There is no ventricular septal defect visualized. LVEF is 65%. Right Ventricle The right ventricle is normal size. The right ventricular systolic function is normal. The RVSP is 30.4 mmHg. Atria The left atrium size is normal. The right atrium size is normal. The interatrial septum is intact with no evidence for an atrial septal defect. Aortic Valve The aortic valve is normal in structure. Aortic valve is trileaflet. There is no aortic valvular stenosis. No aortic regurgitation is present. Mitral Valve The mitral valve is normal in structure. No evidence of mitral valve stenosis. Trace mitral regurgitation. Tricuspid Valve The tricuspid valve is normal in structure. There is no tricuspid valve stenosis. Trace tricuspid regurgitation. Pulmonic Valve The pulmonary valve is normal in structure. There is no pulmonic valvular stenosis. Trace pulmonic regurgitation. Great Vessels The aortic root is normal in size. The ascending aorta is normal in size. Aortic arch is normal in caliber. IVC is normal in size and collapses >50% with inspiration. Pericardium There is no pericardial effusion. 2D Dimensions IVSD d PLAX 0.86 cm F: 0.6-1.0LV Vol A2C d MOD 70.8 mL LVPW d PLAX 0.87 cm F: 0.6 - 1.0LV Vol A4C d MOD 86.6 mL LVID d PLAX 4.53 cm F: 3.8 - 5.2LA vol/ BSA A4C s A-L22.1 mL/m2 LVDs 2.90 cm F: 2.2 - 3.5LA Area A4C s MOD 16.55 cm2 Ao Root d 2.40 cm F: 2.7 - 3.3LV EF A4C MOD 64.5 % RA Area A4C10.65 cm2LV EF A2C MOD 61.6 % RA Vol/ BSA A4C s A-L 11.3 mL/m2LV EF Biplane MOD 62.0 % Ao Asc Diam d 2.73 cm F: 2.3 - 3.1SV48.51 mL LV EF Teichholz 65.2 %SV Index25.47 mL/m2 LVEF (Almendarez's)62.04 % F: 54 - 74 LV Kylrxa43.63 mL F: 46 - 106 LV Volume Index31.38 mL/m2 F: 29 - 61 LV Vol Biplane MOD 78.2 mL FS35.60 % M-Mode TAPSE 2.60 cm (M/F) >1.7 LV Diastology MV E' medial0.127 (>0.07 m/s)E/A Ratio 1.1 LV E/e MED6.70 (<14)MV E Vmax 0.85 (0.4-1.3 m/s) MV E' lateral0.117 (>0.1 m/s)MV A Vmax 0.75 (0.4-1.3 m/s) LV E/e LAT7.25 (<14)MV E/A Ratio 1.10 MV E/E' medial 6.70 MV E/E' lateral7.26 Aortic Valve LVOT Area3.06 cm2AoV Area Vmax2.44 cm2 LVOT Vmax 1.29 m/sAoV Area/ BSA (Vmax)1.28 cm2/m2 LVOT Mean Ashwin.0.79 m/sAVA Mean Ashwin.2.34 cm2 LVOT Peak Grad 6.7 mmHgAVA Mean Ashwin. Index1.23 cm2/m2 LVOT Mean Grad 3.0 mmHg LVOT VTI0.236 m LVOT Diam s 1.95 cm AoV Vmax1.62 m/s Velocity Ratio 0.79 AoV Mean Ashwin.1.03 m/s AoV Peak Grad10.5 mmHg LVOT SV 72.28 mL AoV Mean Grad4.9 mmHg AoV VTI0.317 m AoV Area VTI2.28 cm2 AoV Area/ BSA (VTI)1.20 cm/m2 Mitral Valve MV DT 226 (160-240 msec)MR Vmax 4.47 m/s MV PHT65 msecMR VTI 1.350 m MV Area PHT 3.36 cm2MR Peak Grad 79.8 mmHg MV VTI 0.369 mMR Mean Grad 58.7 mmHg MV VTI Annulus 0.364 m MV Area VTI 1.94 (4.0-6.0 cm2) Pulmonary Valve PV Vmax 1.04 (0.5-1.5 m/s)RVOT Peak Gr.2.08 mmHg PV Peak Grad 4.3 mmHgRVOT Mean Gr.1.15 mmHg PV Mean Grad 2.2 mmHgRVOT VTI0.185 m PV VTI 0.248 mRVOT Vmax 0.72 m/s Tricuspid Valve TR Peak Grad 27.3 mmHgTR Vmax 2.62 m/s RA Pressure 3.00 mmHg RVSP (TR) 30.4 mmHg Ordered By: Tyra Garcia M.D. CC: Dictated By: Neal Flores M.D. 01/25/21 1249 <Electronically signed by Neal Flores M.D. in OV> 01/26/21 0957 Transcribed By: Neal Flores MD This is privileged, confidential information intended only for the provider named. Any use or distribution by any person other than this provider is strictly prohibited. If you receive this report in error, please notify us immediately at [phone] and return the original report to us at the address above. Thank-you. Anesthesia Assessment and Plan Anesthesia History Personal History: No History of Anesthesia Complications Family History: No Family History of Anesthesia Complications Exercise Tolerance Exercise Tolerance: Metabolic Equivalents>4 Pertinent Negatives Pertinent Negatives: No Symptoms of GERD, No Major Cardiovascular Symptoms or Complaints and No Major Pulmonary Symptoms or Complaints Cardiac & Pulmonary Exam Cardiac Exam: Normal S1/S2 Heart Sounds Pulmonary Exam: Clear Bilateral Breath Sounds Implantable Cardiac Device Does patient have a Pacemaker or an ICD?: No Airway Exam Known Difficult Airway: No Mallampati Class: 2 Mouth Opening: Normal (> 3cm) Thyromental Distance: Greater than 3 cm Neck Range of Motion: Full ROM Neck Circumference: Normal Teeth Condition: Removable Dentures/Plates Upper and Removable Dentures/Plates Lower ASA Classification ASA Score: ASA 2 Emergency Case?: No NPO Status NPO Status: NPO Clears >2 hours, Solids >8 hours Anesthesia Plan Resuscitation Status: Full Code Anesthesia Technique: General Anesthesia Airway Planned: Natural Airway Monitors Used: Standard Monitors
[2025-08-20 11:39] VITALS: BMI 32.2
--- NOTE | 2025-08-20 12:37 | BOWEL_PTH ---
PATIENT: Cherelle Louise LOC: [facility] U#:[id number] AGE/SX: 75/F ROOM: RE08/20/[address]: John Umaña MD : 1950 BED: DIS: 08/20/2025 SPEC #: [id number] RECD: 08/20/25 16:18 STATUS: VILMA RE #: [id number] ELI: 08/20/25 12:[address]: John Umaña DEPT: Surgical Specimen RECD BY: Shruthi Guillen ENTERED: 08/20/25 16:21 SP TYPE: Bowel OTHR DR: Tyra Garcia V Tissues: 1 - BIOPSY BOWEL 2 - BIOPSY BOWEL 3 - BIOPSY BOWEL 4 - BIOPSY BOWEL Procedures: GROSS AND MICRO LEVEL 4 Comments: [id number]
[2025-08-20 12:52] VITALS: BP 125/48; PULSE 61; RESP 16; TEMP 36; O2SAT 98
--- NOTE | 2025-08-20 12:57 | W.ANESPOSTOP ---
Postoperative Evaluation Date, Time and Location Date Performed: 08/20/25 Time Performed: 12:56 Patient Location: Day Surgery Unit Vital Signs Most Recent Imported Vital Signs: Most Recent Vital Signs Temp Pulse Resp BP Pulse Ox 36 C L 61 16 125/48 L 98 08/20/25 12:52 08/20/25 12:52 08/20/25 12:52 08/20/25 12:52 08/20/25 12:52 Pain Score Most Recent Pain Score: Most Recent Pain Score Pain Level 0 08/20/25 12:52 Assessment Mental Status: Arousable with meaningful communication Airway and Respiratory Function: Patent airway with normal (patient baseline) respiratory exam Cardiovascular Function: Hemodynamically Stable Hydration Status: Adequately Hydrated Nausea & Vomiting: No Nausea or Vomiting Pain: Pt. Denies Any Pain Peripheral Nerve Block: Patient did not receive a nerve block
[2025-08-20 13:16] VITALS: BP 124/56; PULSE 57; RESP 14; TEMP 36.1; O2SAT 97
== END 2025-08-20 13:31 | disposition home or self-care (01) ==
LOC: SUR 09:46
PROVIDERS: PCP Family Medicine; Visit Provider Surgery
PROC: 0DJD8ZZ Inspection of Lower Intestinal Tract, Via Natural or Artificial Opening Endoscopic (ICD-10-PCS; CPT 45378; principal; 2025-08-20 11:15)
DX: Z12.11 Encounter for screening for malignant neoplasm of colon (principal); K57.30 Diverticulosis of large intestine without perforation or abscess without bleeding; D12.2 Benign neoplasm of ascending colon; D12.4 Benign neoplasm of descending colon; D12.5 Benign neoplasm of sigmoid colon
CPT/HCPCS: 45380; 88305; J2704